=== PATIENT | male | born 1940 | race Caucasian/White ===

== ENCOUNTER 2021-05-04 15:55 | Emergency (ER) | payer OTHER, MEDICARE ==
[~2021-05-04] VITALS: Ht 182.9 cm; Wt 110.0 kg
[~2021-05-04 15:55] MED LIST: ACET-75 PO; ALB0.5UD IH; ALOG25TA2 PO; BISA-155 PO; CETI10TA15 PO; DONE10TA7 PO; EMPA25TA PO; EZET10TA6 PO; GABA-530 PO; INSU100I25 SQ; KETO5DRO3 RIGHTEYE; METF500T PO; METO-384 PO; MULT-381 PO; OFLO5DRO LEFTEYE; POLY17PO10 PO; PRED5DRO3 RIGHTEYE; TIOT4MIS3 INH
[2021-05-04] MEDS ORDERED: normal saline 1000ML IV soln IVB ONE (16:10)
[2021-05-04] MEDS ORDERED: morphine 4 MG/ML inj SYRINge IV PRN (16:10)
[2021-05-04] MEDS ORDERED: ondansetron/PF 4mg/2ml inj IV ONE (16:10)
[2021-05-04] MEDS ORDERED: CefTRIAXone 2gm/D5W 50ml BAG 50 ML IV ONE (18:05)
[2021-05-04] MEDS ORDERED: CEPH250T PO (19:05)
[2021-05-04] MEDS ORDERED: ONDA4TAB6 PO (19:05)
[2021-05-04] MEDS ORDERED: FLO0.4C PO (19:05)
[2021-05-04] MEDS ORDERED: HYDR-3965 PO (19:05)
[2021-05-04 19:30] VITALS: BP 166/67
== END 2021-05-04 19:34 | disposition home or self-care (01) ==
LOC: ER 15:57
DX: E11.9 Type 2 diabetes mellitus without complications (principal); J44.9 Chronic obstructive pulmonary disease, unspecified; Z87.442 Personal history of urinary calculi; Z79.4 Long term (current) use of insulin; Z79.899 Other long term (current) drug therapy; Z79.2 Long term (current) use of antibiotics
CPT/HCPCS: 74176; 96365; 96375; 99284; J0696; J2270; J2405; J7030

== ENCOUNTER 2022-03-23 02:32 | Emergency (ER) | payer OTHER, MEDICARE ==
[~2022-03-23] VITALS: Ht 182.9 cm; Wt 103.6 kg
[~2022-03-23 02:32] MED LIST changes: +DONE10TA19 PO; -DONE10TA7 PO; +ONDA4TAB6 PO
[2022-03-23 03:03] VITALS: BP 161/60
[2022-03-23 03:21] LABS: BASOPHILS # (AUTO) 0.1 X10'3 (0-0.2); BASOPHILS % (AUTO) 0.7 % (0-1); EOSINOPHILS # (AUTO) 0.1 X10'3 (0-0.9); EOSINOPHILS % (AUTO) 0.8 % (0-6); HEMATOCRIT 39.2 % (42.0-52.0); HEMOGLOBIN 13.1 g/dl (14.0-17.9); LYMPHOCYTES # (AUTO) 1.6 X10'3 (1.1-4.8); LYMPHOCYTES % (AUTO) 11.2 % (21-51); MEAN CORPUSCULAR HEMOGLOBIN 29.7 PG (27.0-31.0); MEAN CORPUSCULAR HGB CONC 33.5 g/dL (33.0-36.5); MEAN CORPUSCULAR VOLUME 88.4 FL (78-98); MONOCYTES # (AUTO) 1.5 X10'3 (0-0.9); MONOCYTES % (AUTO) 10.1 % (2-12); NEUTROPHILS # (AUTO) 11.2 X10'3 (1.8-7.7); NEUTROPHILS % (AUTO) 77.2 % (42-75); PLATELET COUNT 280 X10'3 (140-440); RED BLOOD COUNT 4.43 X10'6 (4.70-6.10); RED CELL DISTRIBUTION WIDTH 13.5 % (11.5-14.5); WHITE BLOOD COUNT 14.6 X10'3 (4.5-11.0)
[2022-03-23 03:31] LABS: ALANINE AMINOTRANSFERASE 21 U/L (12-78); ALBUMIN 3.6 G/DL (3.4-5.0); ALBUMIN/GLOBULIN RATIO 0.9 (1.1-1.5); ALKALINE PHOSPHATASE 98 IU/L (46-116); ANION GAP 11 (8-16); ASPARTATE AMINO TRANSFERASE 24 U/L (10-37); BILIRUBIN,TOTAL 0.7 MG/DL (0.1-1.0); BLOOD UREA NITROGEN 28 MG/DL (7-18); BUN/CREATININE RATIO 20.1 (5.4-32.0); CALCIUM 9.3 MG/DL (8.5-10.1); CHLORIDE 104 MMOL/L (99-107); CREATININE 1.39 MG/DL (0.60-1.10); GLUCOSE 285 MG/DL (70-104); MAGNESIUM 1.9 MG/DL (1.5-2.4); POTASSIUM 4.1 MMOL/L (3.5-5.1); SODIUM 141 MMOL/L (135-145); TOTAL CARBON DIOXIDE 26.5 MMOL/L (24-32); TOTAL PROTEIN 7.4 G/DL (6.4-8.2); eGFR 49 ML/MIN
[2022-03-23] MEDS ORDERED: ringers solution, lactated 500ml IV solution IV ONE (03:45)
--- NOTE | 2022-03-23 06:54 | NUR ---
D/C'd to home via taxi.
== END 2022-03-23 06:55 | disposition home or self-care (01) ==
LOC: ER 02:33
DX: R53.1 Weakness (principal); I48.91 Unspecified atrial fibrillation; E78.00 Pure hypercholesterolemia, unspecified; E11.42 Type 2 diabetes mellitus with diabetic polyneuropathy; I10 Essential (primary) hypertension; J44.9 Chronic obstructive pulmonary disease, unspecified; Z87.442 Personal history of urinary calculi; Z88.8 Allergy status to other drugs, medicaments and biological substances; Z79.4 Long term (current) use of insulin; Z79.899 Other long term (current) drug therapy
CPT/HCPCS: 36415; 80053; 83605; 83735; 84145; 85025; 87040; 87077; 87502; 87503; 93005; 99284; J7120

== ENCOUNTER 2022-03-24 14:28 | Inpatient (IN) | payer OTHER, MEDICARE ==
[~2022-03-24] VITALS: Ht 182.9 cm; Wt 103.6 kg
[2022-03-24 15:19] LABS: BASOPHILS # (AUTO) 0.1 X10'3 (0-0.2); BASOPHILS % (AUTO) 0.7 % (0-1); EOSINOPHILS # (AUTO) 0.2 X10'3 (0-0.9); HEMATOCRIT 44.2 % (42.0-52.0); HEMOGLOBIN 14.8 g/dl (14.0-17.9); LYMPHOCYTES % (AUTO) 13.2 % (21-51); MEAN CORPUSCULAR HEMOGLOBIN 29.7 PG (27.0-31.0); MEAN CORPUSCULAR HGB CONC 33.5 g/dL (33.0-36.5); MEAN CORPUSCULAR VOLUME 88.7 FL (78-98); MEAN PLATELET VOLUME 7.8 FL (7.4-10.4); MONOCYTES # (AUTO) 1.4 X10'3 (0-0.9); MONOCYTES % (AUTO) 9.4 % (2-12); NEUTROPHILS # (AUTO) 11.7 X10'3 (1.8-7.7); NEUTROPHILS % (AUTO) 75.7 % (42-75); PLATELET COUNT 283 X10'3 (140-440); RED BLOOD COUNT 4.98 X10'6 (4.70-6.10); RED CELL DISTRIBUTION WIDTH 13.8 % (11.5-14.5); WHITE BLOOD COUNT 15.5 X10'3 (4.5-11.0)
[2022-03-24 15:28] LABS: D-DIMER 2.57 MG/L FEU (0-0.50)
[2022-03-24 15:32] LABS: ALANINE AMINOTRANSFERASE 20 U/L (12-78); ALBUMIN 3.8 G/DL (3.4-5.0); ALBUMIN/GLOBULIN RATIO 0.9 (1.1-1.5); ALKALINE PHOSPHATASE 108 IU/L (46-116); ANION GAP 12 (8-16); ASPARTATE AMINO TRANSFERASE 24 U/L (10-37); BILIRUBIN,TOTAL 0.8 MG/DL (0.1-1.0); BLOOD UREA NITROGEN 22 MG/DL (7-18); BUN/CREATININE RATIO 18.8 (5.4-32.0); CALCIUM 9.6 MG/DL (8.5-10.1); CHLORIDE 103 MMOL/L (99-107); CREATININE 1.17 MG/DL (0.60-1.10); GLUCOSE 198 MG/DL (70-104); POTASSIUM 3.6 MMOL/L (3.5-5.1); SODIUM 141 MMOL/L (135-145); TOTAL CARBON DIOXIDE 26.3 MMOL/L (24-32); TOTAL PROTEIN 7.9 G/DL (6.4-8.2); eGFR 60 ML/MIN
[2022-03-24] MEDS ORDERED: normal saline 1000ML IV soln IVB ONE (15:50)
[2022-03-24] MEDS ORDERED: iohexol 350MG/ML 100ml bottle IV ONE (15:54)
[2022-03-24] MEDS ORDERED: CefTRIAXone 2gm/D5W 50ml BAG 50 ML IV ONE (16:45)
[2022-03-24 17:54] LABS: CLARITY,URINE CLEAR (Clear); COLOR,URINE YELLOW (Yellow); GLUCOSE, URINE 500 mg/dl (Neg); KETONES,URINE 15 mg/dl (Neg); LEUKOCYTE ESTERASE ,URINE NEGATIVE (Neg); NITRITES, URINE NEGATIVE (Neg); OCCULT BLOOD,URINE LARGE (Neg); PH,URINE 5.5 (4.8-8.0); PROTEIN,URINE TRACE mg/dl (Neg); UROBILINOGEN,URINE 0.2 E.U/dL (0.2-1.0)
[2022-03-24 17:57] LABS: UA COLLECTION TYPE NON-SPECIFIED
[2022-03-24 17:59] LABS: RBC,URINE 20-50 /HPF (0-2)
[2022-03-24 18:00] LABS: BACTERIA,URINE FEW /HPF (Neg); HYALINE CASTS 0-3 /LPF (NEGATIVE); MUCUS STRANDS FEW /LPF (Neg); SQUAMOUS EPITHELIAL CELL,UR FEW /LPF (FEW)
--- NOTE | 2022-03-24 18:30 | NUR ---
ASSUMED CARE OF PATIENT AFTER RECIEVING REPORT. PT. RESTING QUIETLY ON GURNEY WITHOUT APPARENT DISTRESS. DENIES ANY COMPLAINTS OF PAIN AT THIS TIME.
[2022-03-24] MEDS ORDERED: glucagon, human recombinant 1mg kit SUBCUT PRN (20:35)
[2022-03-24] MEDS ORDERED: acetaminophen 325mg tablet PO PRN ×2 (20:35)
[2022-03-24] MEDS ORDERED: MESSAGE TO PHARMACY PO ONE (20:35)
[2022-03-24] MEDS ORDERED: morphine 2 MG/ML inj. syringe IV PRN ×2 (20:35)
[2022-03-24] MEDS ORDERED: HYDROcodone/acetaminophen 10/325mg tab PO PRN (20:35)
[2022-03-24] MEDS ORDERED: HYDROcodone/acetaminophen 5mg/325mg tablet PO PRN (20:35)
[2022-03-24] MEDS ORDERED: dextrose 50%-water 50ml dispensing syringe IV PRN ×2 (20:35)
[2022-03-24] MEDS ORDERED: magnesium Cl slow-release 64mg tablet PO PRN (20:35)
[2022-03-24] MEDS ORDERED: DEXTROSE 15 GM of carb/4 tabs (each vial/BOTTLE has 4 tablets) PO PRN ×2 (20:35)
[2022-03-24] MEDS ORDERED: POTASSIUM BICARB 20meq eff tab 20 MEQ TABLET.EFF PO PRN (20:35)
[2022-03-24] MEDS ORDERED: ondansetron/PF 4mg/2ml inj IV PRN (20:35)
[2022-03-24] MEDS ORDERED: magnesium 2GM in 50ml NS 50 ML IV PRN (20:35)
[2022-03-24] MEDS ORDERED: potassium CL 10mEq/100ml bag 100 ML IV PRN (20:35)
[2022-03-24] MEDS ORDERED: magnesium 4gm in 100ml NS 100 ML IV PRN (20:35)
[2022-03-24] MEDS: tamsulosin 0.4mg capsule PO SCH ×2 (21:00→21:31)
[2022-03-24] MEDS: insulin glargine (Lantus) pen - multi-dose SQ SCH (21:00)
[2022-03-24] MEDS: normal saline 1000ml 1,000 ML IV SCH (21:27)
--- NOTE | 2022-03-24 23:46 | NUR ---
PLACED ON HOSPITAL BED FOR COMFORT. ASSISTED TO CHAIR FOR TRANSFER TO BED, SLIGHT WEAKNESS AND UNSTEADINESS NOTED. RESTING QUIETLY IN BED WITH CALL LIGHT WITHIN REACH.
[2022-03-25] VITALS (17 sets, daily range): BP systolic 98–180; BP diastolic 58–92
--- NOTE | 2022-03-25 01:41 | NUR ---
FOUND PATIENT OOB WITH ALL MONITORS OFF, PULLED OUT BOTH IV'S (RT ANTECUBITAL & LT FOREARM). CONFUSED TO PLACE, TIME AND EVENT. ORIENTED PRN. ASSISTED BACK TO BED AND IV STARTED LT. FOREARM. CALL LIGHT WITHIN REACH AT ALL TIMES.
[2022-03-25] MEDS: normal saline 1000ml 1,000 ML IV SCH ×2 (06:35→14:32)
--- NOTE | 2022-03-25 07:45 | NUR ---
Pt is awake and alert. Denies pain. Uses urinal to void.
[2022-03-25] MEDS: K and/or MAG REPLACEMENT MC SCH ×2 (08:00→19:44)
[2022-03-25] MEDS: heparin, porcine 5000 units/ml vial SQ SCH ×2 (08:03→20:38)
[2022-03-25] MEDS: CefTRIAXone 2gm/D5W 50ml BAG 50 ML IV SCH (08:03)
[2022-03-25 08:29] LABS: BASOPHILS # (AUTO) 0.1 X10'3 (0-0.2); BASOPHILS % (AUTO) 0.6 % (0-1); EOSINOPHILS # (AUTO) 0.1 X10'3 (0-0.9); HEMATOCRIT 41.5 % (42.0-52.0); HEMOGLOBIN 13.7 g/dl (14.0-17.9); LYMPHOCYTES # (AUTO) 1.1 X10'3 (1.1-4.8); MEAN CORPUSCULAR HEMOGLOBIN 29.9 PG (27.0-31.0); MEAN CORPUSCULAR HGB CONC 33.1 g/dL (33.0-36.5); MEAN CORPUSCULAR VOLUME 90.3 FL (78-98); MEAN PLATELET VOLUME 8.5 FL (7.4-10.4); MONOCYTES # (AUTO) 0.9 X10'3 (0-0.9); MONOCYTES % (AUTO) 8.4 % (2-12); NEUTROPHILS # (AUTO) 8.6 X10'3 (1.8-7.7); PLATELET COUNT 242 X10'3 (140-440); RED CELL DISTRIBUTION WIDTH 13.6 % (11.5-14.5); WHITE BLOOD COUNT 10.8 X10'3 (4.5-11.0)
[2022-03-25 08:52] LABS: ALANINE AMINOTRANSFERASE 19 U/L (12-78); ALBUMIN 3.4 G/DL (3.4-5.0); ALBUMIN/GLOBULIN RATIO 0.9 (1.1-1.5); ALKALINE PHOSPHATASE 102 IU/L (46-116); ANION GAP 16 (8-16); ASPARTATE AMINO TRANSFERASE 21 U/L (10-37); BILIRUBIN,TOTAL 0.7 MG/DL (0.1-1.0); BLOOD UREA NITROGEN 20 MG/DL (7-18); BUN/CREATININE RATIO 16.9 (5.4-32.0); CALCIUM 8.9 MG/DL (8.5-10.1); CHLORIDE 104 MMOL/L (99-107); CREATININE 1.18 MG/DL (0.60-1.10); GLUCOSE 214 MG/DL (70-104); POTASSIUM 3.7 MMOL/L (3.5-5.1); SODIUM 141 MMOL/L (135-145); TOTAL CARBON DIOXIDE 21.4 MMOL/L (24-32); TOTAL PROTEIN 7.3 G/DL (6.4-8.2); eGFR 60 ML/MIN
[2022-03-25] MEDS: insulin Lispro (HumaLOG) vial - multi-dose SQ SCH ×2 (10:05→21:55)
[2022-03-25] MEDS ORDERED: iohexol 350MG/ML 100ml bottle IV ONE (12:56)
[2022-03-25] MEDS ORDERED: sevoflurane 250ml liquid IH ONE (12:57)
[2022-03-25] MEDS ORDERED: ondansetron/PF 4mg/2ml inj IV PRN (13:00)
[2022-03-25] MEDS ORDERED: ringers solution, lacted 1,000 ML IV SCH (13:00)
[2022-03-25] MEDS ORDERED: morphine 2 MG/ML inj. syringe IV PRN (13:00)
[2022-03-25] MEDS ORDERED: meperidine/PF 25mg/ml syringe IV PRN ×3 (13:00)
[2022-03-25] MEDS ORDERED: morphine 4 MG/ML inj SYRINge IV PRN (13:00)
[2022-03-25] MEDS ORDERED: proCHLORperazine 10 MG/2 ml inj IV PRN (13:00)
[2022-03-25] MEDS ORDERED: fentaNYL/PF 50MCG/1 ML 2ML syringe ONE (13:14)
[2022-03-25] MEDS ORDERED: midazolam 1 mg/ML 2ml injection ONE (13:14)
[2022-03-25] MEDS ORDERED: propofol inj 20 ML IV ONE (13:15)
[2022-03-25] MEDS ORDERED: LIDOcaine 2% (20mg/ml) 5ml vial ONE (13:15)
--- NOTE | 2022-03-25 13:47 | NUR ---
Received from OR viaBED, accompanied by Anesthesiologist JAYANT and OR NURSE report given by Anesthesiolgist. PT AWAKE C/O PAIN AND DISCOMFORT. ON MASK AT 10 LPM. A/O X4; HX OF SLIGHT DEMENTIA. SCD'S NOT IN PLACE. Addendum: 03/25/22 at 1403 by Annie Huertas RN Amended: Links added.
--- NOTE | 2022-03-25 14:44 | NUR ---
PT C/O PAIN TO ABDOMINAL AREA; WAS A 9 AND RECEIVED SOME RELIEF WITH DEMERAL. STATES PAIN IS NOW BETWEEN 8-9; GAVE MORPHINE PER EMAR. WILL CONTINUE TO MONITOR. Addendum: 03/25/22 at 1446 by Annie Huertas RN Amended: Links added.
--- NOTE | 2022-03-25 14:57 | NUR ---
Report called to receiving nurse. Transferred via bed Belongings of one bag and glass case was transferred with pt. RUG MEASURER HUNG FLOOR FLUIDS OF NS AT 100ML/HR. VSS. PT STATES PAIN RELIEF FROM PAIN MED. . Special Issues communicated to receiving nurse. Addendum: 03/25/22 at 1521 by Annie Huertas RN Amended: Links added.
[2022-03-25] MEDS ORDERED: ALOG12.52 PO (16:47)
[2022-03-25] MEDS ORDERED: ATOR-2 PO (16:47)
[2022-03-25] MEDS ORDERED: GABA300C PO (16:49)
[2022-03-25] MEDS ORDERED: DEXT1TAB46 PO (16:51)
[2022-03-25] MEDS ORDERED: METO-395 PO (16:53)
[2022-03-25] MEDS ORDERED: gabapentin 300mg capsule PO PRN (19:00)
--- NOTE | 2022-03-25 20:30 | NUR ---
patient trying to get up to "take a shower". tried to explain to him that he is too unsteady at this time to have a shower. Offered a bed bath. patient demanding that all staff to leave his room, that he "releases us from liability". Explained again that I cannot leave him for safety reasons, as he continues to pull at lines and try to get up. Gait belt placed and patient tried to urinate in BSC. (patient had already been inc in the bed). Bedding changed and staff continually trying to reorient patient to place. He states that he "paid the rent here, so he wants to kick us out." Threats to call police, etc. called. Seroquel 25mg ordered, and if it is ineffective, to give 1 time dose of 0.5 Ativan.
[2022-03-25] MEDS: tamsulosin 0.4mg capsule PO SCH (20:35)
[2022-03-25] MEDS: metoprolol succinate 25mg (24-HOUR) SR. Tablet PO SCH (20:38)
[2022-03-25] MEDS: atorvastatin 20mg tablet PO SCH (20:39)
[2022-03-25] MEDS ORDERED: quetiapine 100mg tablet PO PRN (21:15)
[2022-03-25] MEDS ORDERED: LORazepam 2 mg/ml vial IV ONE (21:15)
[2022-03-25] MEDS ORDERED: QUEtiapine 25mg tablet PO PRN (21:41)
[2022-03-25] MEDS: insulin glargine (Lantus) pen - multi-dose SQ SCH (21:51)
--- NOTE | 2022-03-25 22:00 | NUR ---
student success advisor and myself signed for insulin administration - also had MERLY Arellano check with us for verification.
[2022-03-26 02:00] VITALS: BP 114/50
--- NOTE | 2022-03-26 02:00 | NUR ---
Patient awoke and pulled off leads. Refuses to have them replaced. technical instructor notified.
[2022-03-26] MEDS: normal saline 1000ml 1,000 ML IV SCH ×3 (04:24→23:02)
--- NOTE | 2022-03-26 05:23 | NUR ---
Student documentation: I have reviewed and agree with all interventions, assessments performed and documented by JEMIMA dunlap.
--- NOTE | 2022-03-26 06:30 | NUR ---
Patient in room [facility]. I have received report from DONNA Pettit and had the opportunity to ask questions and assume patient care.
[2022-03-26 06:38] LABS: BASOPHILS % (AUTO) 0.3 % (0-1); EOSINOPHILS % (AUTO) 0 % (0-6); HEMATOCRIT 40.2 % (42.0-52.0); HEMOGLOBIN 13.6 g/dl (14.0-17.9); LYMPHOCYTES # (AUTO) 0.8 X10'3 (1.1-4.8); LYMPHOCYTES % (AUTO) 6.6 % (21-51); MEAN CORPUSCULAR HEMOGLOBIN 29.7 PG (27.0-31.0); MEAN CORPUSCULAR HGB CONC 33.9 g/dL (33.0-36.5); MEAN CORPUSCULAR VOLUME 87.7 FL (78-98); MEAN PLATELET VOLUME 8.3 FL (7.4-10.4); MONOCYTES # (AUTO) 0.7 X10'3 (0-0.9); MONOCYTES % (AUTO) 5.8 % (2-12); NEUTROPHILS # (AUTO) 11.1 X10'3 (1.8-7.7); NEUTROPHILS % (AUTO) 87.3 % (42-75); PLATELET COUNT 263 X10'3 (140-440); RED BLOOD COUNT 4.58 X10'6 (4.70-6.10); RED CELL DISTRIBUTION WIDTH 13.4 % (11.5-14.5); WHITE BLOOD COUNT 12.7 X10'3 (4.5-11.0)
--- NOTE | 2022-03-26 06:45 | NUR ---
Problems reprioritized. Patient report given, questions answered & plan of care reviewed with DONNA Anders.
[2022-03-26 07:02] LABS: ALANINE AMINOTRANSFERASE 19 U/L (12-78); ALBUMIN 3.3 G/DL (3.4-5.0); ALBUMIN/GLOBULIN RATIO 0.8 (1.1-1.5); ALKALINE PHOSPHATASE 96 IU/L (46-116); ANION GAP 13 (8-16); ASPARTATE AMINO TRANSFERASE 20 U/L (10-37); BILIRUBIN,TOTAL 0.6 MG/DL (0.1-1.0); BLOOD UREA NITROGEN 21 MG/DL (7-18); BUN/CREATININE RATIO 16.7 (5.4-32.0); CALCIUM 9.4 MG/DL (8.5-10.1); CHLORIDE 102 MMOL/L (99-107); CREATININE 1.26 MG/DL (0.60-1.10); GLUCOSE 251 MG/DL (70-104); POTASSIUM 3.8 MMOL/L (3.5-5.1); SODIUM 139 MMOL/L (135-145); TOTAL CARBON DIOXIDE 23.7 MMOL/L (24-32); TOTAL PROTEIN 7.2 G/DL (6.4-8.2); eGFR 55 ML/MIN
--- NOTE | 2022-03-26 07:04 | NUR ---
Patient in room [facility] 358. I have received report from Hodan THOMPSON and had the opportunity to ask questions and assume patient care.
[2022-03-26] MEDS: K and/or MAG REPLACEMENT MC SCH ×2 (08:00→19:26)
[2022-03-26] MEDS: MULTIVIT-MIN/FERROUS GLUCONATE 9 MG/15 ML LIQUID PO SCH (09:07)
[2022-03-26] MEDS: heparin, porcine 5000 units/ml vial SQ SCH ×2 (09:14→20:52)
[2022-03-26] MEDS: CefTRIAXone 2gm/D5W 50ml BAG 50 ML IV SCH (09:16)
[2022-03-26] MEDS: insulin Lispro (HumaLOG) vial - multi-dose SQ SCH ×3 (09:59→19:02)
[2022-03-26 10:00] VITALS: BP 121/75
--- NOTE | 2022-03-26 17:11 | NUR ---
DM Consult: Pt hx T2DM A1C 9.5% admit DX UTI, HTN, afib, and Right obstructive uropathy with a stone seen at the UPJ junction with secondary hydronephrosis-status post cystoscopy and stent placement 03/25 per EMR. Pt hx dementia per EMR; ERNST d/w RN who reports pt periods of forgetfulness as well; DM ed deferred at this time. Noted pt on clear liquids diet for unknown reason; RN reports no issues chewing/swallowing. RD recommended advancement to carb controlled diet if physician agreeable. Addendum: 03/26/22 at [address] Amended: Links added.
[2022-03-26 18:00] VITALS: BP 128/65
--- NOTE | 2022-03-26 18:24 | NUR ---
Problems reprioritized. Patient report given, questions answered & plan of care reviewed with Shira THOMPSON.
--- NOTE | 2022-03-26 18:59 | NUR ---
PAGER ID: [phone] MESSAGE: ACOSTA LEAHY#[phone] PT WOULD LIKE REAL FOOD, CAN WE CHANGE IT TO CARB CONTROL? ALSO HE IS GETTING ANXIOUS, CAN WE GET ATIVAN AND SEROQUEL? PRN THANK YOU. UDAY THOMPSON, CONCHITA B [phone]
--- NOTE | 2022-03-26 20:16 | NUR ---
PAGER ID: [phone] MESSAGE: this is Hodan at [phone] - can we DC tele monitor for Doris Jc? He refuses to keep it on. called back. Order to DC tele and to upgrade diet to CC.
[2022-03-26] MEDS: temazepam 15mg capsule PO PRN (20:52)
[2022-03-26] MEDS: atorvastatin 20mg tablet PO SCH (20:53)
[2022-03-26] MEDS: tamsulosin 0.4mg capsule PO SCH (20:53)
[2022-03-26] MEDS: metoprolol succinate 25mg (24-HOUR) SR. Tablet PO SCH (20:53)
[2022-03-26] MEDS: insulin glargine (Lantus) pen - multi-dose SQ SCH (21:02)
[2022-03-26 22:00] VITALS: BP 122/50
--- NOTE | 2022-03-27 04:42 | NUR ---
Student documentation: I have reviewed and agree with all interventions, assessments performed and documented by JEMIMA Brandt.
[2022-03-27 06:00] VITALS: BP 121/77
--- NOTE | 2022-03-27 06:13 | NUR ---
Problems reprioritized. Patient report given, questions answered & plan of care reviewed with DONNA Gaytan and Valeria, student RN.
[2022-03-27 06:24] LABS: BASOPHILS # (AUTO) 0.1 X10'3 (0-0.2); BASOPHILS % (AUTO) 0.7 % (0-1); EOSINOPHILS # (AUTO) 0.3 X10'3 (0-0.9); EOSINOPHILS % (AUTO) 2.9 % (0-6); HEMOGLOBIN 12.6 g/dl (14.0-17.9); LYMPHOCYTES # (AUTO) 2.1 X10'3 (1.1-4.8); LYMPHOCYTES % (AUTO) 21.6 % (21-51); MEAN CORPUSCULAR HEMOGLOBIN 29.6 PG (27.0-31.0); MEAN CORPUSCULAR HGB CONC 33.2 g/dL (33.0-36.5); MEAN CORPUSCULAR VOLUME 89.2 FL (78-98); MEAN PLATELET VOLUME 9.2 FL (7.4-10.4); MONOCYTES # (AUTO) 1.1 X10'3 (0-0.9); MONOCYTES % (AUTO) 10.9 % (2-12); NEUTROPHILS # (AUTO) 6.3 X10'3 (1.8-7.7); NEUTROPHILS % (AUTO) 63.9 % (42-75); PLATELET COUNT 252 X10'3 (140-440); RED BLOOD COUNT 4.26 X10'6 (4.70-6.10); RED CELL DISTRIBUTION WIDTH 13.7 % (11.5-14.5); WHITE BLOOD COUNT 9.8 X10'3 (4.5-11.0)
[2022-03-27 06:53] LABS: ALANINE AMINOTRANSFERASE 15 U/L (12-78); ALBUMIN 2.9 G/DL (3.4-5.0); ALBUMIN/GLOBULIN RATIO 0.9 (1.1-1.5); ALKALINE PHOSPHATASE 82 IU/L (46-116); ANION GAP 9 (8-16); ASPARTATE AMINO TRANSFERASE 19 U/L (10-37); BILIRUBIN,TOTAL 0.5 MG/DL (0.1-1.0); BLOOD UREA NITROGEN 20 MG/DL (7-18); BUN/CREATININE RATIO 17.1 (5.4-32.0); CALCIUM 8.8 MG/DL (8.5-10.1); CHLORIDE 109 MMOL/L (99-107); CREATININE 1.17 MG/DL (0.60-1.10); GLUCOSE 115 MG/DL (70-104); POTASSIUM 3.1 MMOL/L (3.5-5.1); SODIUM 144 MMOL/L (135-145); TOTAL CARBON DIOXIDE 26.3 MMOL/L (24-32); TOTAL PROTEIN 6.1 G/DL (6.4-8.2); eGFR 60 ML/MIN
[2022-03-27] MEDS: K and/or MAG REPLACEMENT MC SCH ×2 (08:00→19:28)
[2022-03-27] MEDS: CefTRIAXone 2gm/D5W 50ml BAG 50 ML IV SCH (09:06)
[2022-03-27] MEDS: MULTIVIT-MIN/FERROUS GLUCONATE 9 MG/15 ML LIQUID PO SCH (09:06)
[2022-03-27] MEDS: heparin, porcine 5000 units/ml vial SQ SCH ×2 (09:06→20:59)
[2022-03-27] MEDS: normal saline 1000ml 1,000 ML IV SCH ×2 (09:07→19:27)
[2022-03-27] MEDS: POTASSIUM BICARB 20meq eff tab 20 MEQ TABLET.EFF PO PRN ×3 (09:19→17:26)
[2022-03-27] MEDS: insulin Lispro (HumaLOG) vial - multi-dose SQ SCH ×3 (09:29→19:25)
[2022-03-27 10:00] VITALS: BP 127/57
--- NOTE | 2022-03-27 10:28 | NUR ---
Patient asked who was watching his cat. I called Rach his daughter who is on the SBAR and was unaware patient was in hospital. She has been updated and is going to send someone over to check on his cat.
[2022-03-27 18:00] VITALS: BP 126/64
--- NOTE | 2022-03-27 19:03 | NUR ---
Report given to Hodan THOMPSON. Pt is resting with no other concerns at this time. Shawnee Hernadez RN looked over care and charting.
[2022-03-27] MEDS: metoprolol succinate 25mg (24-HOUR) SR. Tablet PO SCH (20:59)
[2022-03-27] MEDS: atorvastatin 20mg tablet PO SCH (20:59)
[2022-03-27] MEDS: tamsulosin 0.4mg capsule PO SCH (20:59)
[2022-03-27] MEDS: temazepam 15mg capsule PO PRN (21:00)
[2022-03-27] MEDS: insulin glargine (Lantus) pen - multi-dose SQ SCH (21:06)
--- NOTE | 2022-03-27 21:15 | NUR ---
Entered patient's room at approximately 2100 to find PIV pulled out and hanging over the IV pole. Canula was intact to PIV and patient had no signs of bleeding at PIV site.
[2022-03-27 22:00] VITALS: BP 139/84
[2022-03-28 06:00] VITALS: BP 115/61
[2022-03-28 06:01] LABS: BASOPHILS # (AUTO) 0.1 X10'3 (0-0.2); BASOPHILS % (AUTO) 1.3 % (0-1); EOSINOPHILS # (AUTO) 0.3 X10'3 (0-0.9); EOSINOPHILS % (AUTO) 2.9 % (0-6); HEMATOCRIT 37.7 % (42.0-52.0); HEMOGLOBIN 12.4 g/dl (14.0-17.9); LYMPHOCYTES % (AUTO) 19.9 % (21-51); MEAN CORPUSCULAR HEMOGLOBIN 29.4 PG (27.0-31.0); MEAN CORPUSCULAR HGB CONC 32.8 g/dL (33.0-36.5); MEAN CORPUSCULAR VOLUME 89.7 FL (78-98); MEAN PLATELET VOLUME 9.2 FL (7.4-10.4); MONOCYTES # (AUTO) 0.9 X10'3 (0-0.9); MONOCYTES % (AUTO) 8.5 % (2-12); NEUTROPHILS # (AUTO) 6.8 X10'3 (1.8-7.7); NEUTROPHILS % (AUTO) 67.4 % (42-75); PLATELET COUNT 238 X10'3 (140-440); RED BLOOD COUNT 4.21 X10'6 (4.70-6.10); RED CELL DISTRIBUTION WIDTH 13.7 % (11.5-14.5); WHITE BLOOD COUNT 10.1 X10'3 (4.5-11.0)
[2022-03-28 06:16] LABS: ALANINE AMINOTRANSFERASE 15 U/L (12-78); ALBUMIN 2.9 G/DL (3.4-5.0); ALBUMIN/GLOBULIN RATIO 0.9 (1.1-1.5); ALKALINE PHOSPHATASE 86 IU/L (46-116); ANION GAP 9 (8-16); ASPARTATE AMINO TRANSFERASE 19 U/L (10-37); BILIRUBIN,TOTAL 0.5 MG/DL (0.1-1.0); BLOOD UREA NITROGEN 18 MG/DL (7-18); BUN/CREATININE RATIO 14.4 (5.4-32.0); CALCIUM 8.7 MG/DL (8.5-10.1); CHLORIDE 108 MMOL/L (99-107); CREATININE 1.25 MG/DL (0.60-1.10); GLUCOSE 173 MG/DL (70-104); POTASSIUM 3.2 MMOL/L (3.5-5.1); SODIUM 143 MMOL/L (135-145); TOTAL CARBON DIOXIDE 25.7 MMOL/L (24-32); TOTAL PROTEIN 6.3 G/DL (6.4-8.2); eGFR 56 ML/MIN
[2022-03-28] MEDS: K and/or MAG REPLACEMENT MC SCH ×2 (08:00→19:16)
[2022-03-28] MEDS: normal saline 1000ml 1,000 ML IV SCH ×2 (08:00→16:20)
[2022-03-28] MEDS: CefTRIAXone 2gm/D5W 50ml BAG 50 ML IV SCH (08:12)
[2022-03-28] MEDS: MULTIVIT-MIN/FERROUS GLUCONATE 9 MG/15 ML LIQUID PO SCH (08:19)
[2022-03-28] MEDS: heparin, porcine 5000 units/ml vial SQ SCH ×2 (08:20→20:37)
[2022-03-28] MEDS: insulin Lispro (HumaLOG) vial - multi-dose SQ SCH ×3 (08:27→19:11)
[2022-03-28 11:00] VITALS: BP 118/59
--- NOTE | 2022-03-28 11:22 | NUR ---
Initial: Pt admitted w/ R obstructive uropathy with a stone seen at the UPJ junction with secondary hydronephrosis-status post cystoscopy and stent placement 03/25 per EMR. Currently on Carb control diet w/ avg intake 50% of meals partially meeting needs. Pt could benefit from Glucerna TID to assist w/ meeting needs. Pt documented as A&O x 4 and confused. LBM 03/27. Will continue to monitor. Recs; 1. Continue Carb control diet as tolerated; assist w/ meals as needed 2. Glucerna TID; pending MD verification 3. Bowel care per rx 4. Scaled wts Addendum: 03/28/22 at [address]án [address] RD Amended: Links added.
--- NOTE | 2022-03-28 11:52 | NUR ---
PAGER ID: [phone] MESSAGE: [id number] Doris Daughter at bedside, states patient is NOT at baseline, not able to go home alone. SARAI [id number]
--- NOTE | 2022-03-28 11:53 | NUR ---
as clinical instructor i reviewed student nurse charting
--- NOTE | 2022-03-28 15:41 | NUR ---
PAGER ID: [phone] MESSAGE: [id number] Doris Rebolledo+ 3.2 would you like me to restart protocol? SARAI [id number]
[2022-03-28] MEDS ORDERED: magnesium Cl slow-release 64mg tablet PO PRN (15:45)
[2022-03-28] MEDS ORDERED: potassium Cl 40MEQ/1/2NS 520ml 520 ML IV PRN (15:45)
[2022-03-28] MEDS ORDERED: potassium Cl 20 mEq SR tablet PO PRN (15:45)
[2022-03-28] MEDS ORDERED: magnesium 4gm in 100ml NS 100 ML IV PRN (15:45)
[2022-03-28] MEDS: potassium Cl 20 mEq SR tablet PO PRN (19:09)
[2022-03-28] MEDS ORDERED: K and/or MAG REPLACEMENT MC SCH (20:00)
[2022-03-28] MEDS: tamsulosin 0.4mg capsule PO SCH (20:34)
[2022-03-28] MEDS: metoprolol succinate 25mg (24-HOUR) SR. Tablet PO SCH (20:34)
[2022-03-28] MEDS: atorvastatin 20mg tablet PO SCH (20:34)
[2022-03-28] MEDS: temazepam 15mg capsule PO PRN (20:34)
[2022-03-28] MEDS: insulin glargine (Lantus) pen - multi-dose SQ SCH (20:38)
[2022-03-29] MEDS: normal saline 1000ml 1,000 ML IV SCH ×3 (01:37→20:35)
[2022-03-29] MEDS: potassium Cl 20 mEq SR tablet PO PRN ×4 (01:37→20:57)
[2022-03-29 06:00] VITALS: BP 155/73
[2022-03-29 06:44] LABS: BASOPHILS # (AUTO) 0.1 X10'3 (0-0.2); BASOPHILS % (AUTO) 1.1 % (0-1); EOSINOPHILS # (AUTO) 0.3 X10'3 (0-0.9); EOSINOPHILS % (AUTO) 3.5 % (0-6); HEMATOCRIT 38.4 % (42.0-52.0); HEMOGLOBIN 12.7 g/dl (14.0-17.9); MEAN CORPUSCULAR HEMOGLOBIN 29.7 PG (27.0-31.0); MEAN CORPUSCULAR HGB CONC 33.1 g/dL (33.0-36.5); MEAN CORPUSCULAR VOLUME 89.7 FL (78-98); MEAN PLATELET VOLUME 8.7 FL (7.4-10.4); MONOCYTES # (AUTO) 0.8 X10'3 (0-0.9); MONOCYTES % (AUTO) 8.8 % (2-12); NEUTROPHILS # (AUTO) 5.7 X10'3 (1.8-7.7); NEUTROPHILS % (AUTO) 63.6 % (42-75); PLATELET COUNT 221 X10'3 (140-440); RED BLOOD COUNT 4.28 X10'6 (4.70-6.10); WHITE BLOOD COUNT 8.9 X10'3 (4.5-11.0)
[2022-03-29 06:57] LABS: ALANINE AMINOTRANSFERASE 20 U/L (12-78); ALBUMIN 3.1 G/DL (3.4-5.0); ALBUMIN/GLOBULIN RATIO 0.9 (1.1-1.5); ALKALINE PHOSPHATASE 101 IU/L (46-116); ANION GAP 10 (8-16); ASPARTATE AMINO TRANSFERASE 21 U/L (10-37); BILIRUBIN,TOTAL 0.5 MG/DL (0.1-1.0); BLOOD UREA NITROGEN 16 MG/DL (7-18); BUN/CREATININE RATIO 12.8 (5.4-32.0); CALCIUM 8.9 MG/DL (8.5-10.1); CHLORIDE 108 MMOL/L (99-107); CREATININE 1.25 MG/DL (0.60-1.10); GLUCOSE 172 MG/DL (70-104); MAGNESIUM 1.5 MG/DL (1.5-2.4); POTASSIUM 3.3 MMOL/L (3.5-5.1); SODIUM 142 MMOL/L (135-145); TOTAL CARBON DIOXIDE 24.5 MMOL/L (24-32); TOTAL PROTEIN 6.7 G/DL (6.4-8.2); eGFR 56 ML/MIN
[2022-03-29] MEDS: K and/or MAG REPLACEMENT MC SCH ×2 (08:00→20:00)
[2022-03-29] MEDS: insulin Lispro (HumaLOG) vial - multi-dose SQ SCH ×3 (09:16→19:07)
[2022-03-29] MEDS: heparin, porcine 5000 units/ml vial SQ SCH ×2 (09:18→20:57)
[2022-03-29] MEDS: MULTIVIT-MIN/FERROUS GLUCONATE 9 MG/15 ML LIQUID PO SCH (09:18)
[2022-03-29] MEDS: CefTRIAXone 2gm/D5W 50ml BAG 50 ML IV SCH (09:18)
[2022-03-29] MEDS ORDERED: tamsulosin capsule PO (09:55)
[2022-03-29] MEDS ORDERED: AMOX-419 PO (10:01)
[2022-03-29 11:00] VITALS: BP 125/60
--- NOTE | 2022-03-29 12:36 | NUR ---
PAGER ID: [phone] MESSAGE: [id number] Doris is unsteady, almost fell coming out of the bathroom. SARAI [phone]
--- NOTE | 2022-03-29 13:28 | NUR ---
assisting RN with pt care, Rach Brunner, daughter, , would like to talk with director case management
--- NOTE | 2022-03-29 16:26 | NUR ---
Spoke with daughter on the phone. She is uncomfortable with the patient going home as he will be alone and is still weak. She does not live in [place] and works. Home health and home PT ordered.
--- NOTE | 2022-03-29 16:40 | NUR ---
Messaged Dr regarding [facility] requiring written rx. DC cancelled for today.
[2022-03-29 18:00] VITALS: BP 144/70
[2022-03-29] MEDS: temazepam 15mg capsule PO PRN (20:56)
[2022-03-29] MEDS: tamsulosin 0.4mg capsule PO SCH (20:57)
[2022-03-29] MEDS: metoprolol succinate 25mg (24-HOUR) SR. Tablet PO SCH (20:57)
[2022-03-29] MEDS: atorvastatin 20mg tablet PO SCH (20:57)
[2022-03-29] MEDS: insulin glargine (Lantus) pen - multi-dose SQ SCH (21:07)
[2022-03-29 22:00] VITALS: BP 148/60
--- NOTE | 2022-03-30 06:23 | NUR ---
Report to [place] THOMPSON.
[2022-03-30] MEDS: normal saline 1000ml 1,000 ML IV SCH (06:35)
--- NOTE | 2022-03-30 07:00 | NUR ---
Patient in room [facility] 355. I have received report from Zaira THOMPSON and had the opportunity to ask questions and assume patient care.
[2022-03-30] MEDS: K and/or MAG REPLACEMENT MC SCH (07:32)
[2022-03-30 07:36] LABS: MAGNESIUM 1.8 MG/DL (1.5-2.4); POTASSIUM 3.8 MMOL/L (3.5-5.1)
[2022-03-30 08:00] VITALS: BP 150/85
[2022-03-30] MEDS: CefTRIAXone 2gm/D5W 50ml BAG 50 ML IV SCH (08:00)
[2022-03-30] MEDS: heparin, porcine 5000 units/ml vial SQ SCH (08:10)
[2022-03-30] MEDS: MULTIVIT-MIN/FERROUS GLUCONATE 9 MG/15 ML LIQUID PO SCH (08:10)
[2022-03-30 10:00] VITALS: BP 129/87
[2022-03-30] MEDS: insulin Lispro (HumaLOG) vial - multi-dose SQ SCH (10:15)
--- NOTE | 2022-03-30 15:10 | NUR ---
Reviewed Discharge instructions with patient, patient verbalized understanding, handouts given. IV previously removed. Patient accompanied by friend to lobby.
== END 2022-03-30 15:05 | disposition home health service (06) | DRG 659 ==
LOC: ER 14:29 → ED HOLD 20:41 → SUR 3N 03-25 15:02
PROVIDERS: ADMIT Internal Medicine; ATTEND Internal Medicine
PROC: B4201ZZ Computerized Tomography (CT Scan) of Abdominal Aorta using Low Osmolar Contrast (ICD-10-PCS; 2022-03-24)
PROC: B32T1ZZ Computerized Tomography (CT Scan) of Left Pulmonary Artery using Low Osmolar Contrast (ICD-10-PCS; 2022-03-24)
PROC: B3201ZZ Computerized Tomography (CT Scan) of Thoracic Aorta using Low Osmolar Contrast (ICD-10-PCS; 2022-03-24)
PROC: B32S1ZZ Computerized Tomography (CT Scan) of Right Pulmonary Artery using Low Osmolar Contrast (ICD-10-PCS; 2022-03-24)
PROC: BT141ZZ Fluoroscopy of Kidneys, Ureters and Bladder using Low Osmolar Contrast (ICD-10-PCS; 2022-03-25)
PROC: 0T788DZ Dilation of Bilateral Ureters with Intraluminal Device, Via Natural or Artificial Opening Endoscopic (ICD-10-PCS; principal; 2022-03-25 12:57)
DX: N20.2 Calculus of kidney with calculus of ureter (principal); G93.41 Metabolic encephalopathy; N13.6 Pyonephrosis; N17.9 Acute kidney failure, unspecified; I48.20 Chronic atrial fibrillation, unspecified; Z20.822 Contact with and (suspected) exposure to COVID-19; Z66 Do not resuscitate; N18.30 Chronic kidney disease, stage 3 unspecified; E11.22 Type 2 diabetes mellitus with diabetic chronic kidney disease; Z60.2 Problems related to living alone; E11.42 Type 2 diabetes mellitus with diabetic polyneuropathy; E78.00 Pure hypercholesterolemia, unspecified; E87.6 Hypokalemia; F03.90 Unspecified dementia, unspecified severity, without behavioral disturbance, psychotic disturbance, mood disturbance, and anxiety; I12.9 Hypertensive chronic kidney disease with stage 1 through stage 4 chronic kidney disease, or unspecified chronic kidney disease; J44.9 Chronic obstructive pulmonary disease, unspecified; N40.0 Benign prostatic hyperplasia without lower urinary tract symptoms; R29.6 Repeated falls; Z79.4 Long term (current) use of insulin; Z87.442 Personal history of urinary calculi; Z79.84 Long term (current) use of oral hypoglycemic drugs; Z79.899 Other long term (current) drug therapy
CPT/HCPCS: 36415; 70450; 71045; 71275; 74177; 74420; 76000; 80053; 81001; 82948; 83036; 83605; 83735; 83880; 84132; 84145; 84484; 85025; 85379; 87040; 87081; 87088; 87635; 96365; 97162; 97530; 97535; 99285; A4349; A4618; C1769; C2617; C9803; G0378; J0696; J1644; J1815; J2060; J2175; J2250; J2270; J2704; J3010; J3490; J7030; Q9967

== ENCOUNTER 2022-07-20 07:34 | Emergency (ER) | payer OTHER, MEDICARE ==
[~2022-07-20] VITALS: Ht 182.9 cm; Wt 91.0 kg
[~2022-07-20 07:34] MED LIST changes: -ACET-75 PO; -ALB0.5UD IH; +ALOG12.52 PO; -ALOG25TA2 PO; +ATOR-2 PO; -BISA-155 PO; -CETI10TA15 PO; +DEXT1TAB46 PO; -DONE10TA19 PO; -EMPA25TA PO; -GABA-530 PO; +GABA300C PO; -KETO5DRO3 RIGHTEYE; -METO-384 PO; +METO-395 PO; -OFLO5DRO LEFTEYE; -ONDA4TAB6 PO; -POLY17PO10 PO; -PRED5DRO3 RIGHTEYE; -TIOT4MIS3 INH; +tamsulosin capsule PO
[2022-07-20 08:11] LABS: CLARITY,URINE CLOUDY (Clear); COLOR,URINE YELLOW (Yellow); GLUCOSE, URINE 100 mg/dl (Neg); KETONES,URINE TRACE mg/dl (Neg); LEUKOCYTE ESTERASE ,URINE SMALL (Neg); NITRITES, URINE NEGATIVE (Neg); OCCULT BLOOD,URINE LARGE (Neg); PH,URINE 6.5 (4.8-8.0); PROTEIN,URINE 30 mg/dl (Neg); UROBILINOGEN,URINE 0.2 E.U/dL (0.2-1.0)
[2022-07-20 08:12] LABS: UA COLLECTION TYPE CLN CATCH MIDSTREAM
[2022-07-20 08:25] LABS: MUCUS STRANDS FEW /LPF (Neg); RBC,URINE TNTC /HPF (0-2); SQUAMOUS EPITHELIAL CELL,UR FEW /LPF (FEW)
[2022-07-20 08:27] LABS: BACTERIA,URINE FEW /HPF (Neg)
[2022-07-20 08:28] LABS: RENAL CELLS, URINE FEW /HPF
[2022-07-20 09:33] LABS: BASOPHILS # (AUTO) 0.1 X10'3 (0-0.2); BASOPHILS % (AUTO) 0.6 % (0-1); EOSINOPHILS # (AUTO) 0.1 X10'3 (0-0.9); EOSINOPHILS % (AUTO) 1.7 % (0-6); HEMATOCRIT 39.4 % (42.0-52.0); HEMOGLOBIN 13.1 g/dl (14.0-17.9); LYMPHOCYTES # (AUTO) 1.4 X10'3 (1.1-4.8); LYMPHOCYTES % (AUTO) 17.3 % (21-51); MEAN CORPUSCULAR HGB CONC 33.2 g/dL (33.0-36.5); MEAN CORPUSCULAR VOLUME 90.3 FL (78-98); MEAN PLATELET VOLUME 7.3 FL (7.4-10.4); MONOCYTES # (AUTO) 0.7 X10'3 (0-0.9); MONOCYTES % (AUTO) 8.6 % (2-12); NEUTROPHILS % (AUTO) 71.8 % (42-75); PLATELET COUNT 281 X10'3 (140-440); RED BLOOD COUNT 4.36 X10'6 (4.70-6.10); RED CELL DISTRIBUTION WIDTH 13.1 % (11.5-14.5); WHITE BLOOD COUNT 8.4 X10'3 (4.5-11.0)
[2022-07-20 09:51] LABS: ALANINE AMINOTRANSFERASE 16 U/L (12-78); ALBUMIN 3.5 G/DL (3.4-5.0); ALBUMIN/GLOBULIN RATIO 0.9 (1.1-1.5); ALKALINE PHOSPHATASE 91 IU/L (46-116); ASPARTATE AMINO TRANSFERASE 22 U/L (10-37); BILIRUBIN,TOTAL 0.7 MG/DL (0.1-1.0); BLOOD UREA NITROGEN 16 MG/DL (7-18); BUN/CREATININE RATIO 12.8 (5.4-32.0); CREATININE 1.25 MG/DL (0.60-1.10); GLUCOSE 185 MG/DL (70-104); TOTAL CARBON DIOXIDE 28.4 MMOL/L (24-32); TOTAL PROTEIN 7.3 G/DL (6.4-8.2); eGFR 56 ML/MIN
[2022-07-20 09:57] LABS: APTT 28 SECONDS (22-32)
[2022-07-20] MEDS ORDERED: iohexol 300mg/ml 100ml inj. ONE (10:09)
[2022-07-20] MEDS ORDERED: MESSAGE TO NURSING PO NR (10:15)
[2022-07-20 10:22] LABS: ANION GAP 9 (8-16); CHLORIDE 105 MMOL/L (99-107); POTASSIUM 3.9 MMOL/L (3.5-5.1); SODIUM 142 MMOL/L (135-145)
[2022-07-20] MEDS ORDERED: acetaminophen 325mg tablet PO ONE (10:45)
[2022-07-20] MEDS ORDERED: CefTRIAXone/D5W-Rocephin 1gm 50 ML IV ONE (11:05)
[2022-07-20] MEDS ORDERED: CEFD300C3 PO (11:06)
[2022-07-20 11:58] VITALS: BP 152/73
== END 2022-07-20 12:00 | disposition home or self-care (01) ==
LOC: ER 07:34
DX: N39.0 Urinary tract infection, site not specified (principal); R31.9 Hematuria, unspecified; E78.00 Pure hypercholesterolemia, unspecified; I10 Essential (primary) hypertension; J44.9 Chronic obstructive pulmonary disease, unspecified; E11.9 Type 2 diabetes mellitus without complications
CPT/HCPCS: 36415; 74177; 80053; 81001; 85025; 85610; 85730; 87088; 93005; 96365; 99285; J0696; J3490; Q9967

== ENCOUNTER 2023-06-20 14:41 | Inpatient (IN) | payer OTHER, MEDICARE ==
[~2023-06-20] VITALS: Ht 182.9 cm; Wt 100.0 kg
[~2023-06-20 14:41] MED LIST changes: -DEXT1TAB46 PO; -GABA300C PO; -INSU100I25 SQ; +INSU100I27 SQ; +METF-900 PO; -METF500T PO
[2023-06-20] MEDS ORDERED: acetaminophen 325mg tablet PO ONE (15:30)
[2023-06-20 16:09] LABS: BASOPHILS % (AUTO) 0.4 % (0-1); EOSINOPHILS % (AUTO) 0 % (0-6); HEMATOCRIT 37.5 % (42.0-52.0); HEMOGLOBIN 12.6 g/dl (14.0-17.9); LYMPHOCYTES # (AUTO) 0.5 X10'3 (1.1-4.8); LYMPHOCYTES % (AUTO) 5.4 % (21-51); MEAN CORPUSCULAR HEMOGLOBIN 31.1 PG (27.0-31.0); MEAN CORPUSCULAR HGB CONC 33.7 g/dL (33.0-36.5); MEAN CORPUSCULAR VOLUME 92.6 FL (78-98); MEAN PLATELET VOLUME 7.4 FL (7.4-10.4); MONOCYTES # (AUTO) 1.1 X10'3 (0-0.9); MONOCYTES % (AUTO) 11.8 % (2-12); NEUTROPHILS # (AUTO) 7.7 X10'3 (1.8-7.7); NEUTROPHILS % (AUTO) 82.4 % (42-75); PLATELET COUNT 245 X10'3 (140-440); RED BLOOD COUNT 4.05 X10'6 (4.70-6.10); RED CELL DISTRIBUTION WIDTH 12.8 % (11.5-14.5); WHITE BLOOD COUNT 9.4 X10'3 (4.5-11.0)
[2023-06-20] MEDS ORDERED: CefTRIAXone 2gm/D5W 50ml BAG 50 ML IV ONE (16:22)
[2023-06-20 16:24] LABS: ALANINE AMINOTRANSFERASE 15 U/L (12-78); ALBUMIN 3.8 G/DL (3.4-5.0); ALBUMIN/GLOBULIN RATIO 0.9 (1.1-1.5); ALKALINE PHOSPHATASE 82 IU/L (46-116); ANION GAP 11 (8-16); ASPARTATE AMINO TRANSFERASE 16 U/L (10-37); BILIRUBIN,TOTAL 0.4 MG/DL (0.1-1.0); BLOOD UREA NITROGEN 24 MG/DL (7-18); BUN/CREATININE RATIO 14.5 (10.0-20.0); CALCIUM 9.6 MG/DL (8.5-10.1); CHLORIDE 99 MMOL/L (99-107); CREATININE 1.66 MG/DL (0.60-1.10); GLUCOSE 197 MG/DL (70-104); POTASSIUM 4.2 MMOL/L (3.5-5.1); SODIUM 136 MMOL/L (135-145); TOTAL CARBON DIOXIDE 25.8 MMOL/L (24-32); TOTAL PROTEIN 8.2 G/DL (6.4-8.2); eCRCL 39 ML/MIN; eGFR 40 ML/MIN
[2023-06-20] MEDS ORDERED: normal saline 1000ML IV soln IVB ONE (16:25)
[2023-06-20] MEDS ORDERED: normal saline 500ML IV soln IV ONE (16:25)
[2023-06-20 16:31] LABS: PRO BRAIN NATRIURETIC PEPTIDE 1966 PG/ML (0-450)
[2023-06-20] MEDS ORDERED: ipratropium/albuterol 3ml nebule NEB ONE (19:45)
[2023-06-20 19:49] LABS: BILIRUBIN,URINE NEGATIVE (Neg); CLARITY,URINE SLIGHTLY CLOUDY (Clear); COLOR,URINE YELLOW (Yellow); GLUCOSE, URINE 250 mg/dl (Neg); KETONES,URINE 40 mg/dl (Neg); LEUKOCYTE ESTERASE ,URINE NEGATIVE (Neg); NITRITES, URINE NEGATIVE (Neg); OCCULT BLOOD,URINE SMALL (Neg); PH,URINE 6.5 (4.8-8.0); PROTEIN,URINE 30 mg/dl (Neg); UROBILINOGEN,URINE 0.2 E.U/dL (0.2-1.0)
[2023-06-20 19:50] VITALS: PULSE 106; RESP 20; O2SAT 91
[2023-06-20 19:54] LABS: UA COLLECTION TYPE CLN CATCH MIDSTREAM
[2023-06-20 19:58] VITALS: PULSE 110; RESP 20; O2SAT 91
[2023-06-20 20:04] LABS: BACTERIA,URINE 1+ /HPF (Neg); MUCUS STRANDS NONE SEEN /LPF (Neg); RBC,URINE 0-2 /HPF (0-2); SQUAMOUS EPITHELIAL CELL,UR FEW /LPF (FEW); TRANSITIONAL EPI CELLS,URINE FEW /HPF
[2023-06-20 20:05] LABS: FINE GRANULAR CAST 0-3 /LPF (NEGATIVE); HYALINE CASTS 0-3 /LPF (NEGATIVE); WBC CLUMPS,URINE FEW /HPF (NEGATIVE)
[2023-06-20 20:06] LABS: COARSE GRANULAR CAST 0-3 /LPF (NEGATIVE)
[2023-06-20] MEDS ORDERED: LANTUS SUBCUT (20:50)
[2023-06-20] MEDS ORDERED: MAGN64TA8 PO (20:50)
[2023-06-20] MEDS ORDERED: magnesium 4gm in 100ml NS 100 ML IV PRN (21:35)
[2023-06-20] MEDS ORDERED: HYDROcodone/acetaminophen 5mg/325mg tablet PO PRN (21:35)
[2023-06-20] MEDS ORDERED: acetaminophen 325mg tablet PO PRN ×2 (21:35)
[2023-06-20] MEDS ORDERED: ondansetron/PF 4mg/2ml inj IV PRN (21:35)
[2023-06-20] MEDS ORDERED: potassium Cl 40MEQ/1/2NS 520ml 520 ML IV PRN (21:35)
[2023-06-20] MEDS ORDERED: normal saline 1000ml 1,000 ML IV SCH (21:35)
[2023-06-20] MEDS ORDERED: magnesium 2GM in 50ml NS 50 ML IV PRN (21:35)
[2023-06-20] MEDS ORDERED: magnesium Cl slow-release 64mg tablet PO PRN (21:35)
[2023-06-20] MEDS ORDERED: morphine 2 MG/ML inj. syringe IV PRN (21:35)
[2023-06-20] MEDS ORDERED: potassium Cl 20 mEq SR tablet PO PRN ×2 (21:35)
[2023-06-21] MEDS ORDERED: ipratropium/albuterol 3ml nebule NEB PRN (01:55)
[2023-06-21 02:01] VITALS: PULSE 92; RESP 20; O2SAT 90
[2023-06-21 02:35] LABS: BASOPHILS % (AUTO) 0.2 % (0-1); EOSINOPHILS % (AUTO) 0 % (0-6); HEMATOCRIT 36.4 % (42.0-52.0); HEMOGLOBIN 12.1 g/dl (14.0-17.9); LYMPHOCYTES # (AUTO) 0.3 X10'3 (1.1-4.8); LYMPHOCYTES % (AUTO) 2.4 % (21-51); MEAN CORPUSCULAR HGB CONC 33.2 g/dL (33.0-36.5); MEAN CORPUSCULAR VOLUME 93.5 FL (78-98); MEAN PLATELET VOLUME 7.3 FL (7.4-10.4); MONOCYTES # (AUTO) 1.4 X10'3 (0-0.9); MONOCYTES % (AUTO) 11.4 % (2-12); NEUTROPHILS # (AUTO) 10.2 X10'3 (1.8-7.7); PLATELET COUNT 220 X10'3 (140-440); RED BLOOD COUNT 3.89 X10'6 (4.70-6.10); RED CELL DISTRIBUTION WIDTH 13.1 % (11.5-14.5); WHITE BLOOD COUNT 11.9 X10'3 (4.5-11.0)
[2023-06-21 02:48] LABS: ALANINE AMINOTRANSFERASE 10 U/L (12-78); ALBUMIN 3.3 G/DL (3.4-5.0); ALBUMIN/GLOBULIN RATIO 0.8 (1.1-1.5); ALKALINE PHOSPHATASE 69 IU/L (46-116); ANION GAP 13 (8-16); ASPARTATE AMINO TRANSFERASE 19 U/L (10-37); BILIRUBIN,TOTAL 0.4 MG/DL (0.1-1.0); BLOOD UREA NITROGEN 24 MG/DL (7-18); BUN/CREATININE RATIO 13.6 (10.0-20.0); CHLORIDE 98 MMOL/L (99-107); CREATININE 1.76 MG/DL (0.60-1.10); GLUCOSE 265 MG/DL (70-104); POTASSIUM 4.1 MMOL/L (3.5-5.1); SODIUM 134 MMOL/L (135-145); TOTAL CARBON DIOXIDE 22.8 MMOL/L (24-32); TOTAL PROTEIN 7.3 G/DL (6.4-8.2); eCRCL 37 ML/MIN; eGFR 37 ML/MIN
[2023-06-21] MEDS: CefTRIAXone 2gm/D5W 50ml BAG 50 ML IV SCH (08:17)
[2023-06-21] MEDS: heparin, porcine 5000 units/ml vial SQ SCH ×2 (08:17→22:25)
[2023-06-21] MEDS: ezetimibe 10mg tablet PO SCH (08:42)
[2023-06-21] MEDS ORDERED: MESSAGE TO PHARMACY PO ONE (11:25)
[2023-06-21] MEDS ORDERED: dextrose 50%-water 50ml dispensing syringe IV PRN ×2 (11:25)
[2023-06-21] MEDS ORDERED: glucagon, human recombinant 1mg kit SUBCUT PRN (11:25)
[2023-06-21] MEDS ORDERED: DEXTROSE 15 GM of carb/4 tabs (each vial/BOTTLE has 4 tablets) PO PRN ×2 (11:25)
[2023-06-21] MEDS: normal saline 1000ml 1,000 ML IV SCH ×2 (11:46→22:25)
[2023-06-21 12:39] VITALS: PULSE 85; RESP 30; O2SAT 89
[2023-06-21 12:47] VITALS: PULSE 88; RESP 16
[2023-06-21] MEDS ORDERED: POTASSIUM BICARB 20meq eff tab 20 MEQ TABLET.EFF PO SCH (13:20)
[2023-06-21 13:25] LABS: HEMOGLOBIN A1C 7.4 % (4.5-6.2)
[2023-06-21 15:49] LABS: ABG BASE EXCESS -2.4 mmol/L (-2.0-2.0); ABG HCO3 21.5 mmol/L (22.0-26.0); ABG OXYGEN SATURATION 95.4 % (94-97); ABG PCO2 (T) 34.3 mmHg (35.0-48.0); ABG PH (T) 7.414 (7.340-7.440); ABG PO2 (T) 77.4 mmHg (75.0-100.0); ALLEN'S TEST POSITIVE; FCOHb 0.3 % (0.0-3.9); FHHb 4.6 % (0.0-5.0); FLOW 16 L/min; FMetHb 0.1 % (0.0-1.5); MODE MASK - NRB; TOTAL HEMOGLOBIN 13.1 G/dl (14.0-17.9)
[2023-06-21] MEDS: azithromycin/NS 500mg/250ml 250 ML IV SCH (16:07)
[2023-06-21] MEDS: magnesium Cl slow-release 64mg tablet PO SCH (20:00)
[2023-06-21 20:06] VITALS: PULSE 87; RESP 22; O2SAT 96
[2023-06-21] MEDS ORDERED: insulin glargine (Lantus) pen - multi-dose SQ SCH (21:00)
[2023-06-21] MEDS: metoprolol succinate 25mg (24-HOUR) SR. Tablet PO SCH (21:00)
[2023-06-21] MEDS: tamsulosin 0.4mg capsule PO SCH (21:00)
[2023-06-21] MEDS: insulin glargine (Lantus) pen - multi-dose SQ SCH (23:01)
[2023-06-22] VITALS (15 sets, daily range): BP systolic 100–134; BP diastolic 45–56; PULSE 60–87; RESP 16–23; TEMP 97.6–98.9; O2SAT 92–99
[2023-06-22] MEDS ORDERED: VANCOmycin 2,000MG in NS 500ml IV soln IV ONE (07:15)
[2023-06-22] MEDS: azithromycin/NS 500mg/250ml 250 ML IV SCH (07:26)
[2023-06-22] MEDS: ezetimibe 10mg tablet PO SCH (07:28)
[2023-06-22] MEDS: heparin, porcine 5000 units/ml vial SQ SCH ×4 (07:28→20:20)
[2023-06-22] MEDS: magnesium Cl slow-release 64mg tablet PO SCH ×2 (07:35→20:20)
[2023-06-22] MEDS: dexamethasone 4mg/ml inj IV SCH (08:05)
[2023-06-22] MEDS: insulin Lispro (HumaLOG) vial - multi-dose SQ SCH ×3 (08:38→20:19)
[2023-06-22 08:42] LABS: BASOPHILS % (AUTO) 0.4 % (0-1); EOSINOPHILS % (AUTO) 0 % (0-6); HEMATOCRIT 35.1 % (42.0-52.0); HEMOGLOBIN 11.8 g/dl (14.0-17.9); LYMPHOCYTES # (AUTO) 0.8 X10'3 (1.1-4.8); LYMPHOCYTES % (AUTO) 7.9 % (21-51); MEAN CORPUSCULAR HEMOGLOBIN 31.2 PG (27.0-31.0); MEAN CORPUSCULAR HGB CONC 33.8 g/dL (33.0-36.5); MEAN CORPUSCULAR VOLUME 92.4 FL (78-98); MEAN PLATELET VOLUME 8.3 FL (7.4-10.4); MONOCYTES # (AUTO) 0.9 X10'3 (0-0.9); MONOCYTES % (AUTO) 9.1 % (2-12); NEUTROPHILS % (AUTO) 82.6 % (42-75); PLATELET COUNT 201 X10'3 (140-440); RED BLOOD COUNT 3.79 X10'6 (4.70-6.10); RED CELL DISTRIBUTION WIDTH 12.9 % (11.5-14.5); WHITE BLOOD COUNT 9.6 X10'3 (4.5-11.0)
[2023-06-22] MEDS: CefTRIAXone 2gm/D5W 50ml BAG 50 ML IV SCH (09:08)
[2023-06-22 09:09] LABS: ALANINE AMINOTRANSFERASE 7 U/L (12-78); ALBUMIN 2.5 G/DL (3.4-5.0); ALBUMIN/GLOBULIN RATIO 0.6 (1.1-1.5); ALKALINE PHOSPHATASE 54 IU/L (46-116); ANION GAP 12 (8-16); ASPARTATE AMINO TRANSFERASE 23 U/L (10-37); BILIRUBIN,TOTAL 0.2 MG/DL (0.1-1.0); BLOOD UREA NITROGEN 40 MG/DL (7-18); CALCIUM 8.5 MG/DL (8.5-10.1); CHLORIDE 104 MMOL/L (99-107); CREATININE 1.74 MG/DL (0.60-1.10); GLUCOSE 244 MG/DL (70-104); POTASSIUM 3.9 MMOL/L (3.5-5.1); SODIUM 138 MMOL/L (135-145); TOTAL CARBON DIOXIDE 22.4 MMOL/L (24-32); TOTAL PROTEIN 6.7 G/DL (6.4-8.2); eCRCL 37 ML/MIN; eGFR 38 ML/MIN
[2023-06-22] MEDS ORDERED: REMDESIVIR INJ 200 MG in normal saline 100ml IV soln 100 ML IV ONE (10:15)
[2023-06-22] MEDS: BARICITINIB 2 MG TABLET PO SCH (12:35)
[2023-06-22] MEDS: normal saline 1000ml 1,000 ML IV SCH (18:12)
[2023-06-22] MEDS: tamsulosin 0.4mg capsule PO SCH (20:20)
[2023-06-22] MEDS: metoprolol succinate 25mg (24-HOUR) SR. Tablet PO SCH (20:20)
[2023-06-22] MEDS: insulin glargine (Lantus) pen - multi-dose SQ SCH ×2 (20:46→20:51)
[2023-06-23] VITALS (8 sets, daily range): BP systolic 114–134; BP diastolic 45–53; PULSE 59–91; RESP 16–22; TEMP 97.4–99.6; O2SAT 91–98
[2023-06-23 05:01] LABS: BASOPHILS % (AUTO) 0.2 % (0-1); EOSINOPHILS % (AUTO) 0 % (0-6); HEMATOCRIT 33.2 % (42.0-52.0); HEMOGLOBIN 11.2 g/dl (14.0-17.9); LYMPHOCYTES # (AUTO) 0.8 X10'3 (1.1-4.8); MEAN CORPUSCULAR HEMOGLOBIN 31.3 PG (27.0-31.0); MEAN CORPUSCULAR HGB CONC 33.8 g/dL (33.0-36.5); MEAN CORPUSCULAR VOLUME 92.5 FL (78-98); MEAN PLATELET VOLUME 8.2 FL (7.4-10.4); MONOCYTES # (AUTO) 0.6 X10'3 (0-0.9); MONOCYTES % (AUTO) 6.1 % (2-12); NEUTROPHILS # (AUTO) 7.7 X10'3 (1.8-7.7); NEUTROPHILS % (AUTO) 84.7 % (42-75); PLATELET COUNT 196 X10'3 (140-440); RED BLOOD COUNT 3.59 X10'6 (4.70-6.10); RED CELL DISTRIBUTION WIDTH 13.3 % (11.5-14.5); WHITE BLOOD COUNT 9.1 X10'3 (4.5-11.0)
[2023-06-23 05:20] LABS: ALANINE AMINOTRANSFERASE 10 U/L (12-78); ALBUMIN 2.4 G/DL (3.4-5.0); ALBUMIN/GLOBULIN RATIO 0.6 (1.1-1.5); ALKALINE PHOSPHATASE 54 IU/L (46-116); ANION GAP 9 (8-16); ASPARTATE AMINO TRANSFERASE 24 U/L (10-37); BILIRUBIN,TOTAL 0.2 MG/DL (0.1-1.0); BLOOD UREA NITROGEN 54 MG/DL (7-18); CALCIUM 9.1 MG/DL (8.5-10.1); CHLORIDE 107 MMOL/L (99-107); CREATININE 1.74 MG/DL (0.60-1.10); GLUCOSE 191 MG/DL (70-104); POTASSIUM 4.2 MMOL/L (3.5-5.1); SODIUM 140 MMOL/L (135-145); TOTAL CARBON DIOXIDE 24.3 MMOL/L (24-32); TOTAL PROTEIN 6.7 G/DL (6.4-8.2); eCRCL 37 ML/MIN; eGFR 38 ML/MIN
[2023-06-23] MEDS: dexamethasone 4mg/ml inj IV SCH (09:39)
[2023-06-23] MEDS: CefTRIAXone 2gm/D5W 50ml BAG 50 ML IV SCH (09:41)
[2023-06-23] MEDS: ezetimibe 10mg tablet PO SCH (09:41)
[2023-06-23] MEDS: magnesium Cl slow-release 64mg tablet PO SCH ×2 (09:42→19:59)
[2023-06-23] MEDS: heparin, porcine 5000 units/ml vial SQ SCH ×3 (09:43→20:03)
[2023-06-23] MEDS: azithromycin/NS 500mg/250ml 250 ML IV SCH (09:47)
[2023-06-23] MEDS ORDERED: vancomycin/NS 1 GM ADD-VANTAGE 250 ML IV SCH (10:00)
[2023-06-23] MEDS: insulin Lispro (HumaLOG) vial - multi-dose SQ SCH ×3 (10:03→19:52)
[2023-06-23] MEDS: BARICITINIB 2 MG TABLET PO SCH (10:07)
[2023-06-23] MEDS: REMDESIVIR INJ 100 MG in normal saline 100ml IV soln 100 ML IV SCH (10:10)
[2023-06-23] MEDS: normal saline 1000ml 1,000 ML IV SCH (14:26)
[2023-06-23] MEDS: metoprolol succinate 25mg (24-HOUR) SR. Tablet PO SCH (19:59)
[2023-06-23] MEDS: tamsulosin 0.4mg capsule PO SCH (19:59)
[2023-06-23] MEDS: insulin glargine (Lantus) pen - multi-dose SQ SCH ×2 (21:00)
[2023-06-24] VITALS (7 sets, daily range): BP systolic 111–139; BP diastolic 45–56; PULSE 61–76; RESP 16–19; TEMP 97.7–98.4; O2SAT 91–98
[2023-06-24 05:39] LABS: BASOPHILS % (AUTO) 0.5 % (0-1); EOSINOPHILS % (AUTO) 0 % (0-6); HEMATOCRIT 31.6 % (42.0-52.0); HEMOGLOBIN 10.7 g/dl (14.0-17.9); LYMPHOCYTES # (AUTO) 0.7 X10'3 (1.1-4.8); LYMPHOCYTES % (AUTO) 7.8 % (21-51); MEAN CORPUSCULAR HGB CONC 33.8 g/dL (33.0-36.5); MEAN CORPUSCULAR VOLUME 91.8 FL (78-98); MEAN PLATELET VOLUME 8.3 FL (7.4-10.4); MONOCYTES # (AUTO) 0.4 X10'3 (0-0.9); MONOCYTES % (AUTO) 5.2 % (2-12); NEUTROPHILS # (AUTO) 7.4 X10'3 (1.8-7.7); NEUTROPHILS % (AUTO) 86.5 % (42-75); PLATELET COUNT 230 X10'3 (140-440); RED BLOOD COUNT 3.44 X10'6 (4.70-6.10); RED CELL DISTRIBUTION WIDTH 12.9 % (11.5-14.5); WHITE BLOOD COUNT 8.5 X10'3 (4.5-11.0)
[2023-06-24 06:13] LABS: ALANINE AMINOTRANSFERASE 15 U/L (12-78); ALBUMIN 2.2 G/DL (3.4-5.0); ALBUMIN/GLOBULIN RATIO 0.5 (1.1-1.5); ALKALINE PHOSPHATASE 52 IU/L (46-116); ANION GAP 8 (8-16); ASPARTATE AMINO TRANSFERASE 26 U/L (10-37); BILIRUBIN,TOTAL 0.2 MG/DL (0.1-1.0); BLOOD UREA NITROGEN 59 MG/DL (7-18); BUN/CREATININE RATIO 37.6 (10.0-20.0); CALCIUM 8.9 MG/DL (8.5-10.1); CHLORIDE 107 MMOL/L (99-107); CREATININE 1.57 MG/DL (0.60-1.10); GLUCOSE 70 MG/DL (70-104); SODIUM 139 MMOL/L (135-145); TOTAL CARBON DIOXIDE 24.5 MMOL/L (24-32); TOTAL PROTEIN 6.7 G/DL (6.4-8.2); eCRCL 41 ML/MIN; eGFR 43 ML/MIN
[2023-06-24] MEDS: dexamethasone 4mg/ml inj IV SCH (08:02)
[2023-06-24] MEDS: magnesium Cl slow-release 64mg tablet PO SCH (08:02)
[2023-06-24] MEDS: CefTRIAXone 2gm/D5W 50ml BAG 50 ML IV SCH (08:02)
[2023-06-24] MEDS: REMDESIVIR INJ 100 MG in normal saline 100ml IV soln 100 ML IV SCH (08:03)
[2023-06-24] MEDS: heparin, porcine 5000 units/ml vial SQ SCH ×2 (08:03→16:00)
[2023-06-24] MEDS: ezetimibe 10mg tablet PO SCH (08:14)
[2023-06-24] MEDS: normal saline 1000ml 1,000 ML IV SCH (10:12)
[2023-06-24 14:08] LABS: D-DIMER 0.78 MG/L FEU (0-0.50)
[2023-06-24] MEDS ORDERED: ASPI81TA52 PO (14:33)
[2023-06-24] MEDS ORDERED: ALBU90AE INH (14:33)
[2023-06-24] MEDS ORDERED: DEXA6TAB PO (14:33)
[2023-06-24] MEDS ORDERED: CEFD300C3 PO (14:33)
[2023-06-25] MEDS ORDERED: VANCOMYCIN LEVEL IV ONE (09:30)
== END 2023-06-24 19:34 | disposition home health service (06) | DRG 871 ==
LOC: ER 14:41 → ED HOLD 21:40 → PCU 3S 06-22 10:55
PROVIDERS: ADMIT Internal Medicine; ATTEND Family Medicine
PROC: XW033E5 Introduction of Remdesivir Anti-infective into Peripheral Vein, Percutaneous Approach, New Technology Group 5 (ICD-10-PCS; principal; 2023-06-22)
DX: A41.89 Other specified sepsis (principal); J15.9 Unspecified bacterial pneumonia; J96.01 Acute respiratory failure with hypoxia; U07.1 COVID-19; N17.0 Acute kidney failure with tubular necrosis; J69.0 Pneumonitis due to inhalation of food and vomit; N39.0 Urinary tract infection, site not specified; J44.0 Chronic obstructive pulmonary disease with (acute) lower respiratory infection; F03.90 Unspecified dementia, unspecified severity, without behavioral disturbance, psychotic disturbance, mood disturbance, and anxiety; E78.00 Pure hypercholesterolemia, unspecified; G89.29 Other chronic pain; M54.9 Dorsalgia, unspecified; Z66 Do not resuscitate; E11.42 Type 2 diabetes mellitus with diabetic polyneuropathy; I48.91 Unspecified atrial fibrillation; I11.0 Hypertensive heart disease with heart failure; I50.9 Heart failure, unspecified; E11.65 Type 2 diabetes mellitus with hyperglycemia; Z79.82 Long term (current) use of aspirin; Z79.84 Long term (current) use of oral hypoglycemic drugs; Z79.899 Other long term (current) drug therapy; Z79.4 Long term (current) use of insulin
CPT/HCPCS: 36415; 36600; 71045; 71250; 74176; 80053; 81001; 82803; 82948; 83036; 83605; 83880; 84145; 85018; 85025; 85379; 85651; 86140; 87040; 87077; 87088; 87186; 87634; 87811; 92508; 92616; 93306; 94640; 94760; 97161; 97530; 99285; A4314; A4349; A4615; A4620; A4624; A6212; A6213; G0378; J0456; J0696; J1100; J1644; J1815; J3370; J3490; J7030; J7040

== ENCOUNTER 2024-11-18 14:11 | Inpatient (IN) | payer OTHER, MEDICARE ==
[~2024-11-18] VITALS: Ht 184.2 cm; Wt 68.0 kg
[~2024-11-18 14:11] MED LIST changes: +ALBU90AE INH; +ASPI81TA52 PO; +CEFD300C3 PO; +DEXA6TAB PO; -INSU100I27 SQ; +LANTUS SUBCUT; +MAGN64TA8 PO
--- NOTE | 2024-11-18 14:45 | Physician Documentation ---
History of Present Illness ~ Chief Complaint: Mechanical Fall Stated Complaint: FALL Time Seen by MD: 14:25 Primary Medical Doctor: [facility] Source: patient, EMS, senior living records Mode of Arrival: EMS HPI This is an 84-year-old male brought in by EMS from a assisted living facility, patient reports that he had a syncopal episode after getting up out of a chair to walk to the bathroom, patient reports that he walked several steps before losing consciousness and waking up on the ground, patient reports he does not take blood thinners. Patient reports that he was on the ground for several hours last night being found by staff this morning after he was able to crawl over to an emergency alert button. Patient reports pain all over with the pain worse in his buttocks and back as this is what he was lying on for most of the n ight. Patient reports feeling generally weak. Patient reports recent history of treatment for urinary tract infection. Patient reports history of similar episodes in the last six months. Tetanus within 5 Years?: Yes Medication Reconciliation Allergies: Coded Allergies: No Known Allergies (Unverified , 06/20/23) Scheduled Alogliptin Benzoate (Alogliptin), 1 TAB PO DAILY, (Reported) Aspirin (Ecotrin*), 1 TAB PO DAILY, (Reported) Atorvastatin Calcium (Atorvastatin Calcium), 1 TAB PO DAILY, (Reported) Cyanocobalamin (Vitamin B-12), 0.5 TAB PO DAILY, (Reported) Diclofenac Sodium (Diclofenac Sodium), 1 APPLIC TOP QID, (Reported) Donepezil Hcl (Donepezil Hcl), 1 TAB PO DAILY, (Reported) Insulin Glargine,Hum.rec.anlog* (Lantus*), 10 UNITS SUBCUT HS, (Reported) Lidocaine (Lidocaine Pain Relief), 1 PATCH TOP DAILY, (Reported) Meclizine Hcl (Meclizine Hcl), 2 TAB PO Q8H, (Reported) Metformin Hcl (Metformin Hcl), 2 TAB PO Q12H, (Reported) Metformin Hcl* (Metformin ER*), 2 TAB PO Q12H, (Reported) Metoprolol Succinate (Metoprolol Succinate), 1 TAB PO HS, (Reported) Metoprolol Succinate* (Toprol Xl*), 0.5 TAB PO HS, (Reported) Tamsulosin Hcl* (Flomax*), 1 CAP PO DAILY, (Reported) Scheduled PRN Acetaminophen (Acetaminophen), 1 TAB PO Q6H PRN PRN for pain or fever, (Reported) Polyethylene Glycol 8000 (Polyethylene Glycol), BID PRN for constipation, (Reported) Discontinued Medications Albuterol Sulfate (Proair Respiclick), 2 PUFFS INH Q4HPRN PRN for shortness of breath Discontinued Reason: patient no longer taking Aspirin (Aspirin EC), 1 TAB PO DAILY Discontinued Reason: patient no longer taking Atorvastatin Calcium (Atorvastatin Calcium), 1 TAB PO DAILY, (Reported) Discontinued Reason: patient no longer taking Cefdinir* (Cefdinir*), 1 CAP PO Q12H Discontinued Reason: patient no longer taking Dexamethasone (Dexamethasone), 1 TAB PO BID Discontinued Reason: patient no longer taking Ezetimibe (Zetia), 1 TAB PO DAILY, (Reported) Discontinued Reason: patient no longer taking Insulin Glargine,Hum.rec.anlog* (Lantus*), 10 UNITS SUBCUT HS, (Reported) Discontinued Reason: patient no longer taking Magnesium Chloride (Slow-Mag), 1 TAB PO Q12H, (Reported) Discontinued Reason: patient no longer taking Multivitamin with Minerals (Daily Vitamin Formula-Minerals), 1 TAB PO DAILY, (Reported) Discontinued Reason: patient no longer taking [tamsulosin capsule], 0.4 MG PO HS Discontinued Reason: patient no longer taking Past Medical History Past Medical History: Dementia, Peripheral Neuropathy, Atrial Fibrillation, High Cholesterol, Hypertension, COPD, Kidney Stones, Diabetes, *MUSCULOSKELETAL*, Chronic Back Pain Past Surgical History: other Other Past Surgical History: Ureteral stenting Alcohol Use: None Drug Use: none Lives In: Home Review of Systems ROS Syncopal episode, weakness, body aches, and buttock pain as stated above in the HPI, otherwise all systems are reviewed and negative. Physical Exam Vital Signs: Temperature: 98.1, Source: Oral, Heart Rate: 66, Respiratory Rate: 17, BP: 127/55, Pulse Oximetry: 98, Weight: 68.000 Oxygen Flow Rate: 0 Physical Exam VITALS: Reviewed and as above. GENERAL: Alert, nontoxic appearing, no apparent distress. HEENT: PERRLA, EOMI, in C-collar tenderness to palpation to posterior neck including central C-spine, no step-offs, no crepitus RESPIRATORY: No increased work of breathing, no respiratory distress, speaking in full clear sentences, clear lung sounds in all marrero CHEST: Mildly tender to palpation without crepitus, deformity, ecchymosis, or paradoxical movement CV: Regular rate and rhythm no murmur BACK: Generally tender to palpation without central spinal tenderness and no step-offs or crepitus GI: Abdomen generally mildly tender to palpation without rebound or guarding, MUSCULOSKELETAL: Limbs generally tender to palpation without deformity or point tenderness SKIN: Dry and intact NEURO: Oriented to person, place, time, and event Progress Progress Note 191: I spoke with hospitalist resident Dr. Valverde who kindly accepts patient for admission Results/Orders Results/Orders Orders - LESLIE CHESTER [employer]UCATION [employer] Chest,Single View (11/18/24 14:35) Monitor (11/18/24 14:35) Saline Lock (11/18/24 14:35) Oxygen (11/18/24 14:35) Straight Cath For Urine Sample (11/18/24 14:35) Ct Cervical Spine (11/18/24 15:30) Ct Head (11/18/24 15:30) Ct T&L Spine (11/18/24 15:30) Cult Urine + [place] [facility] (11/18/24 18:28) Page Hospitalist (11/18/24 19:08) Fill Out Med Reconciliation (11/18/24 19:08) Completed Orders - LESLIE CHESTER [employer] Chest,Single View (11/18/24 14:35) Cbc/Diff (11/18/24 14:35) BMP (11/18/24 14:35) Electrocardiogram (11/18/24 14:35) Hs Troponin I W Calculations (11/18/24 14:35) Hs Troponin I W Calculations (11/18/24 16:35) CK (11/18/24 14:35) Ct Cervical Spine (11/18/24 15:30) Ct Head (11/18/24 15:30) Ct T&L Spine (11/18/24 15:30) Normal Saline 1000ml (Sodium Chloride 10 (11/18/24 16:15) Ua W/Microscopic, Cult If Ind (11/18/24 18:13) Cefuroxime Axetil Tablet (Ceftin) (11/18/24 19:05) Hydrocodone/Apap 5/325mg Tab ([place] /32 (11/18/24 19:10) Hgb A1c (11/18/24 14:18) Medications Received in ER Medications (Trade) Dose Ordered Sig/Tamara Route PRN Reason Start Time Stop Time Status Last Admin Dose Admin (Ceftin) 500 mg ONCE ONCE PO 11/18/24 19:05 11/18/24 19:06 DC 11/18/24 19:58 500 MG Vital Signs 11/18/24 11/18/24 11/18/24 14:13 14:20 18:30 Temp 98.1 Pulse 66 60 Resp 18 17 15 B/P (MAP) 127/55 131/50 (77) Pulse Ox 98 98 O2 Flow Rate 0 Laboratory Tests Test 11/18/24 14:18 11/18/24 16:36 11/18/24 18:13 White Blood Count 9.4 Red Blood Count 3.50 L Hemoglobin 10.7 L Hematocrit 32.0 L Mean Corpuscular Volume 91.3 Mean Corpuscular Hemoglobin 30.5 Mean Corpuscular Hemoglobin Concent 33.4 Red Cell Distribution Width 13.5 Platelet Count 228 Mean Platelet Volume 8.3 Neutrophils (%) (Auto) 71.4 Lymphocytes (%) (Auto) 16.7 L Monocytes (%) (Auto) 9.6 Eosinophils (%) (Auto) 1.8 Basophils (%) (Auto) 0.5 Neutrophils # (Auto) 6.7 Lymphocytes # (Auto) 1.6 Monocytes # (Auto) 0.9 Eosinophils # (Auto) 0.2 Basophils # (Auto) 0.0 CBC Comment Sodium Level 144 Potassium Level 4.1 Chloride Level 108 H Carbon Dioxide Level 25.6 Anion Gap 10 Blood Urea Nitrogen 25 H Creatinine 1.52 H Estimated GFR/1.73 m2 44 BUN/Creatinine Ratio 16.4 Glucose Level 150 H Hemoglobin A1c 6.4 H Calcium Level 8.8 Total Creatine Kinase 43 Troponin I High Sensitivity 12 14 Albumin 3.3 L Chemistry Comments Troponin I High Sens Percent Delta 16 Troponin I Hi Sens Absolute Change 2 Urine Specimen Description Cln catch midstream Urine Color Straw Urine Clarity Clear Urine pH 6.0 Urine Specific [place] <=1.005 Urine Protein Negative Urine Glucose (UA) Negative Urine Ketones Negative Urine Occult Blood Trace-intact Urine Nitrite Negative Urine Bilirubin Negative Urine Urobilinogen 0.2 Urine Leukocyte Esterase Small H Urine RBC 0-2 Urine WBC 20-30 H Urine Squamous Epithelial Cells Few Urine Bacteria Few Urine Culture Indicated Indicated Volume Urine Centrifuged 10 ml Urine Comment Microbiology Date/Time Source Procedure Growth Status 11/18/24 18:28 Urine Clean Catch Midstream Urine Culture - Preliminary Culture received. Resulted EKG/XRAY/CT/US/VASC/MRI EKG : Additional Comment EKG at 14:46 interpreted by myself as: Sinus rhythm at a rate of 60, left axis deviation, no ST segment elevation or depression Chest X-Ray : Additional Comments CHEST RADIOGRAPH Indication: CP Technique: Single frontal view of the chest was obtained COMPARISON: DI CHEST,SINGLE VIEW on DOS: 06/22/23, DI CHEST,SINGLE VIEW on DOS: 06/20/23, CHEST,SINGLE VIEW on DOS: 12/27/22, CHEST,SINGLE VIEW on DOS: 03/24/22 FINDINGS: Lines and Tubes: None Lungs: Clear Pleura: No effusion. No pneumothorax. Cardiomediastinal contours: Unremarkable Bones: Unremarkable IMPRESSION: No acute disease. Electronically Signed by:RAUL DIAZ MD Date & Time: 11/18/241558 Dictated by: RAUL DIAZ MD Dictation date and time: 11/18/241558 I have reviewed and agree with the radiology report. I have reviewed and interpreted the imaging as: No focal consolidation or pneumothorax CT #1: Impression CLINICAL INFORMATION: Fall injury. TECHNIQUE: Axial imaging was obtained through the brain without contrast. Coronal and sagittal reformatted images were obtained, reviewed, and stored. Images were reviewed in brain and bone windows. All CT scans at this medical facility are performed using dose modulation techniques as appropriate to a performed exam including the following: Automated exposure control was utilized; adjustment of the MA and/or KV according to patient size; and use of iterative reconstruction technique. CTDIvol = 35.96 mGy DLP = 668.19 mGy-cm COMPARISON: CT HEAD on DOS: 03/24/22 FINDINGS: There is no acute intracranial hemorrhage. No mass effect or midline shift. Scattered areas of hypoattenuation are seen in the periventricular and subcortical white matter, which are nonspecific but most likely sequelae of small vessel ischemic disease. Atrophic changes with dilation of the ventricles and widening of the sulci. Basal cisterns are patent. The calvarium is unremarkable. Paranasal sinuses and mastoid air cells are clear. IMPRESSION: 1. No CT evidence of acute intracranial abnormality. 2. Nonacute findings as described above. Electronically Signed by:HOANG JENSEN DO Date & Time: 11/18/24 1602 Dictated by: HOANG JENSEN DO Dictation date and time: 11/18/24 1602 I have reviewed and agree with the radiology report. I have reviewed and interpreted the imaging as: No intracranial hemorrhage CT #2: Impression Exam: CT CERVICAL SPINE Indication: GL Fall With Back Pain Technique: CT axial images of the cervical spine are obtained without contrast. Coronal and sagittal reformats were obtained. Radiation Dose Information: CTDI volume is 30 mGy. Dose-length product is 591 mGy*cm Comparison: CT CERVICAL SPINE on DOS: 12/25/22 FINDINGS: The cervical vertebral body heights are maintained. Straightening the normal cervical spine curvature. Prominent anterior os osteophytes/ankylosis of the cervical vertebral bodies H. There is moderate to advanced multilevel disc space narrowing. No prevertebral edema. Facet articulations demonstrate moderate facet hypertrophic changes. Posterior paraspinal mineralization. The atlantooccipital, atlantoaxial articulations are intact. Carotid atherosclerotic disease. IMPRESSION: Moderate to advanced cervical degenerative disc disease. Cervical anterior osteophytosis and ankylosis. Electronically Signed by:BRANDI PARRA MD Date & Time: 11/18/24 1626 Dictated by: BRANDI PARRA MD Dictation date and time: 11/18/24 1626 I have reviewed and agree with the radiology report. I have reviewed and interpreted the imaging as: No vertebral fractures observed CT #3: Impression CT CT T L SPINE Indication: GL Fall With Back Pain EXAM DATE: 11/18/2024 03:44 PM COMPARISON: CT T L SPINE on DOS: 12/25/22 TECHNIQUE: CT of the thoracic and lumbar without intravenous contrast. RADIATION DOSE: CTDIvol: 18.4 mGy, DLP: 1042 mGy*cm FINDINGS: The thoracic and lumbar vertebral body heights are maintained. There is anterior Thoracic ankylosis which can be seen with ankylosing spondylitis. Moderate advanced multilevel disc space narrowing. Thoracic kyphotic deformity. No evidence for vertebral body subluxation. Moderate bilateral sacral ileitis with ankle glottic changes. changes. There is aortic atherosclerotic disease. Nonobstructing right renal calculus measuring 8 mm. There is a mid right ureteral calculus measuring 3 mm. Mild right hydroureteronephrosis. There is also mild left hydroureteronephrosis. IMPRESSION: Moderate to advanced thoracolumbar degenerative disc disease. Ankylosis of the thoracolumbar spine which can be seen with ankylosing spondylitis. Mild bilateral hydroureteronephrosis. Mid right ureteral calculus measuring 3 mm. This appears to be nonobstructing. Nonobstructing right renal calculus measuring 8 mm. Electronically Signed by:BRANDI PARRA MD Date & Time: 11/18/241823 Dictated by: BRANDI PARRA MD Dictation date and time: 11/18/241823 I have reviewed and agree with the radiology report. Medical Decision Making Findings This 84-year-old male presented by EMS from an assisted living facility after apparent syncopal episode while standing up to walk to the bathroom, patient reports that he walked several steps before losing consciousness waking up on the ground very spent much of the night. Physical exam did not demonstrate skin breakdown or visible injury, x-rays did not demonstrate evidence of intracranial hemorrhage, spinal fracture, or traumatic misalignment of the spine. Reporting generalized weakness and not focal weakness meeting me to believe that that has weakness preceded his fall in the fall as not the cause of his weakness. Labs did demonstrate anemia however this appears to be chronic and is not to a level to require transfusion. Urinalysis did demonstrate evidence of urinary tract infection which may be related to patient's increased weakness. Patient would benefit from inpatient admission for further evaluation of generalized weakness, syncopal episode, and for physical therapy evaluation. Hospitalist team contacted and kindly accepts patient for admission. Differential Dx:Considerations: Include: Closed head injury, Fracture(s), Intraabdominal injury, Spine injury, Abrasion(s), Contusion(s), Hematoma(s) Departure Disposition: ADMITTED INPATIENT Admitted to Inpatient Unit: to hospitalist Impression: Primary Impression: UTI (urinary tract infection) Qualified Codes: N30.00 - Acute cystitis without hematuria Additional Impressions: Fall Qualified Codes: W19.XXXA - Unspecified fall, initial encounter Syncope Qualified Codes: R55 - Syncope and collapse Weakness generalized Condition: Guarded Referrals: NO PRIMARY CARE PROVIDER (PCP) Education Educated: Family Educated regarding: diagnosis, treatment Signature Scribe Signature: No scribe Attestation: The note accurately reflects work and decisions made by me.LASHON Méndez 11/19/24 00:34 LESLIE CHESTER Nov 18, 2024 14:45
--- NOTE | 2024-11-18 14:49 | ELECTROCARDIOGRAPH REPORT ---
[facility] Test Date: 2024-11-18 Test Time: 14:46:48 Pat Name: BRET LEAHY [id number] Room: Gender: M Sausage Inspector: : 1940 Requested By: LESLIE CHESTER Order Number: [id number] Reading MD: Measurements Intervals [place] Rate: 60 P: 0 MI: 0 QRS: -6 QRSD: 99 T: 53 QT: 446 QTc: 446 Interpretive Statements Junctional rhythm Ventricular premature complex Low voltage, extremity leads Baseline wander in lead(s) V1,V2 Please click the below link to view image of tracing.
[2024-11-18 14:59] LABS: BASOPHILS % (AUTO) 0.5 % (0-1); EOSINOPHILS # (AUTO) 0.2 X10'3 (0-0.9); EOSINOPHILS % (AUTO) 1.8 % (0-6); HEMOGLOBIN 10.7 g/dl (14.0-17.9); LYMPHOCYTES # (AUTO) 1.6 X10'3 (1.1-4.8); LYMPHOCYTES % (AUTO) 16.7 % (21-51); MEAN CORPUSCULAR HEMOGLOBIN 30.5 PG (27.0-31.0); MEAN CORPUSCULAR HGB CONC 33.4 g/dL (33.0-36.5); MEAN CORPUSCULAR VOLUME 91.3 FL (78-98); MEAN PLATELET VOLUME 8.3 FL (7.4-10.4); MONOCYTES # (AUTO) 0.9 X10'3 (0-0.9); MONOCYTES % (AUTO) 9.6 % (2-12); NEUTROPHILS # (AUTO) 6.7 X10'3 (1.8-7.7); NEUTROPHILS % (AUTO) 71.4 % (42-75); PLATELET COUNT 228 X10'3 (140-440); RED CELL DISTRIBUTION WIDTH 13.5 % (11.5-14.5); WHITE BLOOD COUNT 9.4 X10'3 (4.5-11.0)
[2024-11-18 15:07] LABS: ALBUMIN 3.3 G/DL (3.4-5.0); ANION GAP 10 (8-16); BLOOD UREA NITROGEN 25 MG/DL (7-18); BUN/CREATININE RATIO 16.4 (10.0-20.0); CALCIUM 8.8 MG/DL (8.5-10.1); CHLORIDE 108 MMOL/L (99-107); CREATINE KINASE 43 U/L (39-308); CREATININE 1.52 MG/DL (0.60-1.10); GLUCOSE 150 MG/DL (70-104); POTASSIUM 4.1 MMOL/L (3.5-5.1); SODIUM 144 MMOL/L (135-145); TOTAL CARBON DIOXIDE 25.6 MMOL/L (24-32); eCRCL 36 ML/MIN; eGFR 44 ML/MIN
--- NOTE | 2024-11-18 16:02 | RADIOLOGY REPORT ---
CHEST RADIOGRAPH Indication: CP Technique: Single frontal view of the chest was obtained COMPARISON: DI CHEST,SINGLE VIEW on DOS: 06/22/23, DI CHEST,SINGLE VIEW on DOS: 06/20/23, CHEST,SINGLE VIEW on DOS: 12/27/22, CHEST,SINGLE VIEW on DOS: 03/24/22 FINDINGS: Lines and Tubes: None Lungs: Clear Pleura: No effusion. No pneumothorax. Cardiomediastinal contours: Unremarkable Bones: Unremarkable IMPRESSION: No acute disease.
--- NOTE | 2024-11-18 16:05 | RADIOLOGY REPORT ---
CLINICAL INFORMATION: Fall injury. TECHNIQUE: Axial imaging was obtained through the brain without contrast. Coronal and sagittal reform atted images were obtained, reviewed, and stored. Images were reviewed in brain and bone windows. Al l CT scans at this medical facility are performed using dose modulation techniques as appropriate to a performed exam including the following: Automated exposure control was utilized; adjustment of the MA and/or KV according to patient size; and use of iterative reconstruction technique. CTDIvol = 35.9 6 mGy DLP = 668.19 mGy-cm COMPARISON: CT HEAD on DOS: 03/24/22 FINDINGS: There is no acute intracranial hemorrhage. No mass effect or midline shift. Scattered areas of hypoattenuation are seen in the periventricular and subcortical white matter, which are nonspecif ic but most likely sequelae of small vessel ischemic disease. Atrophic changes with dilation of the v entricles and widening of the sulci. Basal cisterns are patent. The calvarium is unremarkable. Parana fang sinuses and mastoid air cells are clear. IMPRESSION: 1. No CT evidence of acute intracranial abnormality. 2. Nonacute findings as described above.
--- NOTE | 2024-11-18 16:28 | RADIOLOGY REPORT ---
Indication: GL Fall With Back Pain Technique: CT axial images of the cervical spine are obtained without contrast. Coronal and sagittal reformats were obtained. Radiation Dose Information: CTDI volume is 30 mGy. Dose-length product is 591 mGy*cm Comparison: CT CERVICAL SPINE on DOS: 12/25/22 FINDINGS: The cervical vertebral body heights are maintained. Straightening the normal cervical spine curvatur e. Prominent anterior os osteophytes/ankylosis of the cervical vertebral bodies H. There is moderate to advanced multilevel disc space narrowing. No prevertebral edema. Facet articulations demonstrate moderate facet hypertrophic changes. Posterior paraspinal mineralization. The atlantooccipital, maureen antoaxial articulations are intact. Carotid atherosclerotic disease. IMPRESSION: Moderate to advanced cervical degenerative disc disease. Cervical anterior osteophytosis and ankylos is.
[2024-11-18] MEDS: normal saline 1000ML IV soln IVB ONE (17:26)
[2024-11-18 18:22] LABS: BILIRUBIN,URINE NEGATIVE (Neg); CLARITY,URINE CLEAR (Clear); COLOR,URINE STRAW (Yellow); GLUCOSE, URINE NEGATIVE (Neg); KETONES,URINE NEGATIVE (Neg); LEUKOCYTE ESTERASE ,URINE SMALL (Neg); NITRITES, URINE NEGATIVE (Neg); OCCULT BLOOD,URINE TRACE-INTACT (Neg); PROTEIN,URINE NEGATIVE (Neg); UROBILINOGEN,URINE 0.2 E.U/dL (0.2-1.0)
[2024-11-18 18:26] LABS: UA COLLECTION TYPE CLN CATCH MIDSTREAM
--- NOTE | 2024-11-18 18:26 | RADIOLOGY REPORT ---
CT CT T L SPINE Indication: GL Fall With Back Pain EXAM DATE: 11/18/2024 03:44 PM COMPARISON: CT T L SPINE on DOS: 12/25/22 TECHNIQUE: CT of the thoracic and lumbar without intravenous contrast. RADIATION DOSE: CTDIvol: 18.4 mGy, DLP: 1042 mGy*cm FINDINGS: The thoracic and lumbar vertebral body heights are maintained. There is anterior Thoracic ankylosis which can be seen with ankylosing spondylitis. Moderate advanced multilevel disc space narrowing. T horacic kyphotic deformity. No evidence for vertebral body subluxation. Moderate bilateral sacral ile itis with ankle glottic changes. changes. There is aortic atherosclerotic disease. Nonobstructing right renal calculus measuring 8 mm. There i s a mid right ureteral calculus measuring 3 mm. Mild right hydroureteronephrosis. There is also mild left hydroureteronephrosis. IMPRESSION: Moderate to advanced thoracolumbar degenerative disc disease. Ankylosis of the thoracolumbar spine which can be seen with ankylosing spondylitis. Mild bilateral hydroureteronephrosis. Mid right ureteral calculus measuring 3 mm. This appears to be nonobstructing. Nonobstructing right renal calculus measuring 8 mm.
[2024-11-18 18:27] LABS: RBC,URINE 0-2 /HPF (0-2); WBC,URINE 20-30 /HPF (0-4)
[2024-11-18 18:28] LABS: BACTERIA,URINE FEW /HPF (Neg); SQUAMOUS EPITHELIAL CELL,UR FEW /LPF (FEW)
[2024-11-18] MEDS: HYDROcodone/acetaminophen 5mg/325mg tablet PO ONE (19:10)
[2024-11-18] MEDS ORDERED: potassium Cl 20 mEq SR tablet PO PRN ×2 (19:25)
[2024-11-18] MEDS ORDERED: potassium Cl 40MEQ/1/2NS 520ml 520 ML IV PRN (19:25)
[2024-11-18] MEDS ORDERED: magnesium sulf-water 4G/100mL 100 ML IV PRN (19:25)
[2024-11-18] MEDS ORDERED: acetaminophen 325mg tablet PO PRN (19:25)
[2024-11-18] MEDS ORDERED: mag hydrox/Alum hydrox/simeth 30ml oral suspension PO PRN (19:25)
[2024-11-18] MEDS ORDERED: magnesium sulf-water 2g/50mL 50 ML IV PRN (19:25)
[2024-11-18 19:48] LABS: HEMOGLOBIN A1C 6.4 % (4.5-6.2)
[2024-11-18] MEDS: cefuroxime axetil 250mg tablet PO ONE (19:58)
[2024-11-18] MEDS: K and/or MAG REPLACEMENT MC SCH (20:00)
[2024-11-18] MEDS: docusate sod 100mg capsule PO SCH (20:00)
[2024-11-18] MEDS ORDERED: ASPI-1071 PO (20:03)
[2024-11-18] MEDS ORDERED: ACET-1017 PO (20:03)
[2024-11-18] MEDS ORDERED: CYAN-104 PO (20:09)
[2024-11-18] MEDS: PERFLUTREN PROTEIN-A MICROSPHR (Optison) 0.22 MG/ML 3ML VIAL IV ONE (20:14)
[2024-11-18] MEDS: normal saline 1000ml 1,000 ML IV SCH (20:36)
[2024-11-18] MEDS: ondansetron/PF 4mg/2ml inj IV PRN (20:36)
[2024-11-18] MEDS: morphine 2 MG/ML inj. syringe IV PRN (20:36)
[2024-11-18] MEDS ORDERED: glucagon, human recombinant 1mg kit SUBCUT PRN (21:10)
[2024-11-18] MEDS ORDERED: DEXTROSE 15 GM of carb/4 tabs (each vial/BOTTLE has 4 tablets) PO PRN ×2 (21:10)
[2024-11-18] MEDS ORDERED: dextrose 50%-water 50ml dispensing syringe IV PRN ×2 (21:10)
--- NOTE | 2024-11-18 21:13 | HISTORY AND PHYSICAL-Residence ---
History & Physical Providers to CC Resident Creating Document: BRIAN ROSEN, RES CC: ANGIE DAVIS MD ~ History of Present Illness Primary Medical Doctor: [facility] Reason for Admit\Complaint: FALL THIS MORNING History of Present Illness A 70-year-old male with past medical history of diabetes type 2, multiple falls was brought in by EMS after he sustained a fall this morning. Patient states that he was trying to go to the restroom when his legs felt weak and he fell down, when he tried to get up he fell down again. He did not hit his head or fall backwards but he just landed straight on the pelvis. Patient denies dizziness, chest pain, shortness of breath, palpitations prior to the episode. Patient denies loss of consciousness, confusion or involuntary bladder bowel movements after the fall. Patient endorses burning sensation, fever but denies abdominal pain, nausea, vomitings, chills. Patient had multiple similar episodes in the past but does not know the reason for his prior falls. Allergies: Coded Allergies: No Known Allergies (Unverified , 06/20/23) Home Medications Home Medications Active Aspirin EC (Aspirin) 81 Mg Tablet.dr 1 Tab PO DAILY 30 Days Proair Respiclick (Albuterol Sulfate) 90 Mcg Aer.pow.ba 2 Puffs INH Q4HPRN PRN Dexamethasone 6 Mg Tablet 1 Tab PO BID 7 Days Cefdinir* (Cefdinir) 300 Mg Capsule 1 Cap PO Q12H 5 Days [tamsulosin capsule] 0.4 MG Cap 0.4 Mg PO HS Reported Vitamin B-12 (Cyanocobalamin) 1,000 Mcg Tablet 0.5 Tab PO DAILY 30 Days Atorvastatin Calcium 80 Mg Tablet 1 Tab PO DAILY 30 Days Acetaminophen 500 Mg Tablet 1 Tab PO Q6H PRN PRN 15 Days Ecotrin* (Aspirin) 81 Mg Tablet.dr 1 Tab PO DAILY 30 Days Slow-Mag (Magnesium Chloride) 71.5 Mg Tablet.dr 1 Tab PO Q12H 30 Days Lantus* (Insulin Glargine) 100 Unit/1 Ml Vial 10 Units SUBCUT HS 30 Days Metformin ER* (Metformin HCl) 500 Mg Tab.sr.24h 2 Tab PO Q12H 30 Days Metoprolol Succinate 25 Mg Tab.sr.24h 1 Tab PO HS 30 Days PT UNSURE (HX OF DEMENTIA PER RN), MED REC BASED ON RECENT PR LIST Atorvastatin Calcium 80 Mg Tablet 1 Tab PO DAILY 30 Days PT UNSURE (HX OF DEMENTIA PER RN), MED REC BASED ON RECENT VA LIST Alogliptin (Alogliptin Benzoate) 12.5 Mg Tablet 1 Tab PO DAILY PT UNSURE (HX OF DEMENTIA PER RN), MED REC BASED ON RECENT VA LIST Daily Vitamin Formula-Minerals (Multivitamin with Minerals) 1 Each Tablet 1 Tab PO DAILY 30 Days PT UNSURE (HX OF DEMENTIA PER RN), MED REC BASED ON RECENT VA LIST Zetia (Ezetimibe) 10 Mg Tablet 1 Tab PO DAILY 30 Days PT UNSURE (HX OF DEMENTIA PER RN), MED REC BASED ON RECENT VA LIST Past Medical History Past Medical History Multiple falls Diabetes type 2 Per previous records: HLD HTN COPD Nephrolithiasis Chronic back pain AFib Peripheral neuropathy Past Surgical History Surgical History Comment Ureteral stenting per previous records Past Social History Social History Comment Patient lives at assisted living Goes to [facility] care 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 Does not smoke cigarettes, consumes beer occasionally, does not consume marijuana or illicit drugs Smoking: Non-Smoker Alcohol Use: None Drug Use: None Lives In: Home ROS ROS All other systems reviewed in full and negative except for pertinent positives mentioned in the HPI Exam Vitals: Vital Signs Date Time Temp Pulse Resp B/P (MAP) Pulse Ox O2 Delivery O2 Flow Rate FiO2 11/18/24 21:01 98.1 63 16 152/64 (93) 96 0 General: General: Alert, awake, oriented, not in acute distress HEENT: PERRLA, no icterus, pallor, lymphadenopathy, carotid bruit, loss of few molars and premolars on the lower and upper dental arches Respiratory system: Bilateral vesicular breath sounds heard, no adventitious breath sounds CVS: S1-S2 heard, no murmurs/rubs/gallop GI: Soft, nontender, no organomegaly, no guarding/rigidity, bowel sounds present Neuro: No sensory deficits, power in bilateral upper and lower extremities 3/5, gait could not be examined, no rigidity, no tremors, no deviation of the mouth, coordination intact. Extremities: No edema cyanosis clubbing/deformities Skin: Warm and dry Diagnostic Data Last Recorded Lab Results: 11/19/246 11/19/246 Advance Care Planning Advanced Care plannin - 30 Minutes (I spent 20 minutes discussing various resuscitative measures and the patient decided to be full code) Additional Plan Assessment: An 84-year-old male with past medical history of diabetes mellitus type 2 and multiple falls presented to the ED after sustaining a fall this morning at an assisted living. Patient is admitted for the evaluation management of mechanical fall and evaluation of syncope. Plan: Mechanical fall Syncope, under evaluation CT head: No CT evidence of acute intracranial abnormality. Cervical spine CT: Moderate to advanced cervical degenerative disc disease. Cervical anterior osteophytosis and ankylosis. Thoracic/lumbar spine CT: Moderate to advanced thoracolumbar degenerative disc disease. Ankylosis of the thoracolumbar spine which can be seen with ankylosing spondylitis. Follow up with pelvic x-ray, orthostatic vitals Fall probably secondary to generalized deconditioning and/or dehydration leading to syncope IV fluids at 100 cc/hour Continue to monitor telemetry History of multiple falls Parkinsonism, rule out Patient does not have any clinical signs and symptoms of parkinsonism like bradykinesia, resting tremors, rigidity With significant history of multiple falls patient might benefit from outpatient evaluation of parkinsonism which is extremely less likely Prerenal DEWAYNE probably secondary to renal tubular stasis Elevated BUN and creatinine IV fluids at 100 cc/hour Continue to monitor BMP UTI, failed outpatient therapy Nephrolithiasis Mild bilateral hydroureteronephrosis. Mid right ureteral calculus measuring 3 mm. This appears to be nonobstructing. Nonobstructing right renal calculus measuring 8 mm. Urinalysis positive for leukocyte esterase and WBC Follow up with urine culture and outpatient/inpatient stone analysis Started on IV Rocephin 1 g Patient received samples but does not remember the antibiotic Tamsulosin 0.4 mg p.o. HS Urology consult in am Diabetes mellitus type 2 A1c: 6.4 On low-dose sliding scale insulin Hyper/hypoglycemia protocol HTN Start on home meds after reconciliation Atrial fibrillation, rate controlled Continue to monitor telemetry and started on meds after medical reconciliation HLD Follow up with lipid panel Meds after reconciliation COPD, not in acute exacerbation DuoNeb q.4 p.r.n. Peripheral neuropathy Med rec pending Follow up with urine culture, echo and pelvic/hip x-ray Code status: Full code Diet: 75 g carb controlled DVT prophylaxis: SCD Disposition: Admit to ortho, follow up with hip/pelvic yesterday, urine culture and echo Brian Rosen MD Internal Medicine, PGY 1 Date of Service: Nov 18, 2024 Billing Provider: ANGIE DAVIS MD Common Visit Codes: [id number] INP/OBS CARE (HIGH) Assessment/Plan Assessment evaluated the patient with the help of residents. Discussed the case with them. Reviewed notes by agree with his assessments and plans. I also reviewed the records including labs radiology and notes from other providers. No additional points at this time BRIAN ROSEN, RES Nov 18, 2024 21:13 ANGIE DAVIS MD Nov 19, 2024 06:35
[2024-11-18] MEDS ORDERED: ipratropium/albuterol 3ml nebule NEB PRN (21:30)
[2024-11-18] MEDS ORDERED: POLY500P24 (21:31)
[2024-11-18] MEDS ORDERED: DICL100G31 TOP (21:31)
[2024-11-18] MEDS ORDERED: METO50TA7 PO (21:31)
[2024-11-18] MEDS ORDERED: DONE-53 PO (21:31)
[2024-11-18] MEDS ORDERED: MECL-231 PO (21:31)
[2024-11-18] MEDS ORDERED: LIDO1ADH67 TOP (21:31)
[2024-11-18] MEDS ORDERED: METF-436 PO (21:31)
[2024-11-18] MEDS ORDERED: TAMS-55 PO (21:31)
[2024-11-18 21:45] VITALS: BP 140/51; PULSE 66; RESP 17; TEMP 97.5; O2SAT 95
--- NOTE | 2024-11-18 22:17 | RADIOLOGY REPORT ---
CLINICAL INDICATION: FALL TECHNIQUE: DI HIP,BI,CMPLT(AP PELVIS) Comparison: None FINDINGS/IMPRESSION: : There is no evidence of acute fracture or dislocation. 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 Moderate degenerative changes are present w ithin the lower lumbar spine and lumbosacral junction. Soft tissues are unremarkable.
[2024-11-18 22:50] VITALS: PULSE 70; RESP 20; O2SAT 94
[2024-11-18] MEDS: tamsulosin 0.4mg capsule PO SCH (23:20)
[2024-11-19 04:47] LABS: BASOPHILS # (AUTO) 0.1 X10'3 (0-0.2); BASOPHILS % (AUTO) 0.6 % (0-1); EOSINOPHILS # (AUTO) 0.3 X10'3 (0-0.9); EOSINOPHILS % (AUTO) 3.7 % (0-6); HEMATOCRIT 28.9 % (42.0-52.0); HEMOGLOBIN 9.8 g/dl (14.0-17.9); LYMPHOCYTES # (AUTO) 1.8 X10'3 (1.1-4.8); LYMPHOCYTES % (AUTO) 19.1 % (21-51); MEAN CORPUSCULAR HEMOGLOBIN 31.2 PG (27.0-31.0); MEAN CORPUSCULAR HGB CONC 33.9 g/dL (33.0-36.5); MEAN CORPUSCULAR VOLUME 91.9 FL (78-98); MEAN PLATELET VOLUME 8.2 FL (7.4-10.4); MONOCYTES % (AUTO) 10.6 % (2-12); NEUTROPHILS # (AUTO) 6.3 X10'3 (1.8-7.7); PLATELET COUNT 210 X10'3 (140-440); RED BLOOD COUNT 3.15 X10'6 (4.70-6.10); RED CELL DISTRIBUTION WIDTH 13.7 % (11.5-14.5); WHITE BLOOD COUNT 9.5 X10'3 (4.5-11.0)
[2024-11-19 05:15] LABS: ALBUMIN 2.9 G/DL (3.4-5.0); ANION GAP 9 (8-16); BLOOD UREA NITROGEN 20 MG/DL (7-18); BUN/CREATININE RATIO 16.3 (10.0-20.0); CALCIUM 8.1 MG/DL (8.5-10.1); CHLORIDE 110 MMOL/L (99-107); CHOL/HDL RATIO 1.9 (0.00-4.99); CHOLESTEROL 96 MG/DL (0-200); CREATININE 1.23 MG/DL (0.60-1.10); GLUCOSE 104 MG/DL (70-104); HDL CHOLESTEROL 51 MG/DL (35-60); LDL CHOLESTEROL 36 MG/DL (50-100); MAGNESIUM 1.3 MG/DL (1.5-2.4); POTASSIUM 3.7 MMOL/L (3.5-5.1); SODIUM 144 MMOL/L (135-145); TOTAL CARBON DIOXIDE 25.1 MMOL/L (24-32); TRIGLYCERIDES 57 MG/DL (20-135); eCRCL 45 ML/MIN; eGFR 56 ML/MIN
[2024-11-19] MEDS: INSULIN LISPRO 100 UNIT/ML INSULN.PEN MULTI-DOSE SQ SCH (07:00)
[2024-11-19 07:39] VITALS: BP 105/51; PULSE 62; RESP 16; TEMP 97.1; O2SAT 98
[2024-11-19 08:00] VITALS: BP 110/49; PULSE 78
[2024-11-19 08:12] VITALS: PULSE 66; RESP 16; O2SAT 93
[2024-11-19] MEDS: CefTRIAXone/D5W-Rocephin 1gm 50 ML IV SCH (08:48)
[2024-11-19 11:00] VITALS: BP 139/75; PULSE 75; RESP 19; TEMP 97.3; O2SAT 95
[2024-11-19 18:00] VITALS: BP 138/70; PULSE 89; RESP 19; TEMP 97.8; O2SAT 96
--- NOTE | 2024-11-19 18:32 | CARDIOLOGY REPORT ---
APPROVED REPORT EXAM: Limited 2D and color flow Echocardiogram. Patient Location: 4022 A Heart Rate: 60's bpm Rhythm: SINUSs Indications CONGESTIVE HEART FAILURE HYPERTENSION ATRIAL FIBRILLATION Car Chaser: NONE Previous echo: NONE Aortic Valve AoV Peak Cristóbal. 135.3 cm/s AoV VTI 25.0 cm AO Peak GR. 7.3 mmHg AO Mean GR. 3 mmHg LVOT VTI 24.01 cm LVOT Peak Cristóbal. 105.7 cm/s Mitral Valve MV E Velocity 61.2 cm/s MV Peak Gr. 2 mmHg MV DECEL TIME 280 ms MV A Velocity 67.2 cm/s MV PHT 68 ms E/A Ratio 0.9 MVA (PHT) 3.24 cm2 MV VMax63.3 cm/s Tricuspid Valve TR P. Velocity 207 cm/s RAP ESTIMATE 10 mmHg TR Peak Gr. 17 mmHg RVSP 27 mmHg LEFT VENTRICLE Normal appearing LV size and wall thickness. Overall systolic function is normal. LVEF is 60-65%. RIGHT VENTRICLE RV appears normal in size and function. RVSP is estimated at 27 mmHg. ATRIA The left atrium size appears normal. AORTIC VALVE Trileaflet AV appears mildly sclerotic without stenosis. No insufficiency. MITRAL VALVE Mild MV annular calcification without stenosis. Trace regurgitation. TRICUSPID VALVE TV appears structurally normal with trace regurgitation. PULMONIC VALVE Pulmonic valve is not well visualized. GREAT VESSELS IVC is not well visualized. PERICARDIUM Normal pericardium. No effusion. Other Information Study Quality: Poor due to poor imaging windows Conclusion Normal appearing LV size and wall thickness. Overall systolic function is normal. LVEF is 60-65%. RV appears normal in size and function. RVSP is estimated at 27 mmHg. The left atrium size appears normal. Trileaflet AV appears mildly sclerotic without stenosis. No insufficiency. Mild MV annular calcification without stenosis. Trace regurgitation. TV appears structurally normal with trace regurgitation. Normal pericardium. No effusion.
[2024-11-19 19:51] VITALS: PULSE 67; RESP 16; O2SAT 94
--- NOTE | 2024-11-19 20:18 | PROGRESS NOTE ---
Daily Progress Note Providers to CC ~ no new complaint today resting comfortably in the bed Central Line/PICC still needed: No Bailey-Non Protocol Bailey Indications Met/Not Met: F/C Indications Not Met Antibiotic Timeout Antibiotic Ordered?: Yes MRSA Education MRSA Education Provided to pt: Yes Subjective As above Objective Vital Signs Date Time Temp Pulse Resp B/P (MAP) Pulse Ox O2 Delivery O2 Flow Rate FiO2 11/19/24 19:51 67 16 94 Room Air* 0 21 11/19/24 18:00 97.8 138/70 (92) Vital signs, stable ,afebrile. Pulse Oximetry reflects adequate oxygenation. General: well developed, well nourished. Awake , alert, and oriented x4, resting comfortably in the bed, in no acute distress . Skin: Warm, dry, no pallor, no rash or petechiae. HEENT: Atraumatic, normocephalic, EOMI, anicteric sclera B; pink conjunctiva; PERRLA, normal oropharynx, moist oral and nasal mucosa. Tympanic membrane , nose , throat clear. Neck: Trachea midline. Supple, full range of motion, no JVD, bruit , hepatojugular reflex , lymphadenopathy or masses, or other lesions Cardiac: Regular rhythm, regular rate no murmurs, rubs, or gallops. Normal S1 and S2, no S3 noticed. PMI is normal. Respiratory: Equal breath sounds bilaterally, no tachypnea; lungs clear to auscultation bilaterally, no wheezing ,rub or rales, or crackles. Chest wall is symmetric and without deformity. No signs of trauma. Chest wall is nontender. No signs of respiratory distress. Resonance is normal upon percussion bilaterally. Gastrointestinal: Abdomen symmetric, non-distended, soft, non-tender, normal bowel sounds x4 quadrant, normoactive, no hepatosplenomegaly , no masses , no bruit, no flank pain bilaterally. No voluntary guarding, rebound, or rigidity. No tenderness to percussion. No pulsatile masses. Equal femoral pulses. No Ruth's sign or McBurney point tenderness. Back; no CVA tenderness bilaterally, no deformities. Neck and back are without deformity as well. No tenderness noted on palpation of the spinous processes. Spinous processes are midline. Cervical, thoracic, and lumbar paraspinal muscles are not tender and are without spasm. : normal external genitalia, without lesions, swelling, masses or tenderness. Musculoskeletal: Extremities, normal range of motion, non-tender, muscle strength 5/5 x 4. Negative Homans signs bilaterally on lower extremity. Distal pulses full symmetrical, no clubbing, cyanosis , edema. Neurological: Speech is clear, alert, and oriented x 4. No motor or sensory deficit, deep tendon reflexes normal, cerebellar intact. Cranial nerves II-XII intact. Psych: Alert and or appropriate, normal affect. Vascular: Good distal pulses, which are equal x4; capillary refill less than 2 seconds. Lymphatic, no lymphadenopathy. Result Diagram: 11/19/2442511/19/24425 Problem\Assessment\Plan Assessment: An 84-year-old male with past medical history of diabetes mellitus type 2 and multiple falls presented to the ED after sustaining a fall this morning at an assisted living. Patient is admitted for the evaluation management of mechanical fall and evaluation of syncope. Plan: Mechanical fall Syncope, under evaluation CT head: No CT evidence of acute intracranial abnormality. Cervical spine CT: Moderate to advanced cervical degenerative disc disease. Cervical anterior osteophytosis and ankylosis. Thoracic/lumbar spine CT: Moderate to advanced thoracolumbar degenerative disc disease. Ankylosis of the thoracolumbar spine which can be seen with ankylosing spondylitis. Follow up with pelvic x-ray, orthostatic vitals Fall probably secondary to generalized deconditioning and/or dehydration leading to syncope IV fluids at 100 cc/hour Continue to monitor telemetry History of multiple falls Parkinsonism, rule out Patient does not have any clinical signs and symptoms of parkinsonism like bradykinesia, resting tremors, rigidity With significant history of multiple falls patient might benefit from outpatient evaluation of parkinsonism which is extremely less likely Prerenal DEWAYNE probably secondary to renal tubular stasis Elevated BUN and creatinine IV fluids at 100 cc/hour Continue to monitor BMP UTI, failed outpatient therapy Nephrolithiasis Mild bilateral hydroureteronephrosis. Mid right ureteral calculus measuring 3 mm. This appears to be nonobstructing. Nonobstructing right renal calculus measuring 8 mm. Urinalysis positive for leukocyte esterase and WBC Follow up with urine culture and outpatient/inpatient stone analysis Started on IV Rocephin 1 g Patient received samples but does not remember the antibiotic Tamsulosin 0.4 mg p.o. HS Urology consult in am Diabetes mellitus type 2 A1c: 6.4 On low-dose sliding scale insulin Hyper/hypoglycemia protocol HTN Start on home meds after reconciliation Atrial fibrillation, rate controlled Continue to monitor telemetry and started on meds after medical reconciliation HLD Follow up with lipid panel Meds after reconciliation COPD, not in acute exacerbation DuoNeb q.4 p.r.n. Peripheral neuropathy Med rec pending Follow up with urine culture, echo and pelvic/hip x-ray Code status: Full code Diet: 75 g carb controlled DVT prophylaxis: SCD Date of Service: Nov 19, 2024 Billing Provider: RHIANNA FAJARDO MD Common Visit Codes: 02897-GPK/OBS SAME DATE (HIGH) RHIANNA FAJARDO MD Nov 19, 2024 20:18
[2024-11-19] MEDS: magnesium Cl slow-release 64mg tablet PO PRN (21:47)
[2024-11-20] VITALS (8 sets, daily range): BP systolic 97–132; BP diastolic 48–74; PULSE 61–80; RESP 15–18; TEMP 97.9–98.1; O2SAT 94–98
[2024-11-20 04:42] LABS: BASOPHILS % (AUTO) 0.5 % (0-1); EOSINOPHILS # (AUTO) 0.3 X10'3 (0-0.9); EOSINOPHILS % (AUTO) 4.3 % (0-6); HEMOGLOBIN 9.8 g/dl (14.0-17.9); LYMPHOCYTES # (AUTO) 1.4 X10'3 (1.1-4.8); LYMPHOCYTES % (AUTO) 18.2 % (21-51); MEAN CORPUSCULAR HGB CONC 33.9 g/dL (33.0-36.5); MEAN CORPUSCULAR VOLUME 91.6 FL (78-98); MEAN PLATELET VOLUME 7.7 FL (7.4-10.4); MONOCYTES # (AUTO) 0.9 X10'3 (0-0.9); MONOCYTES % (AUTO) 10.9 % (2-12); NEUTROPHILS # (AUTO) 5.2 X10'3 (1.8-7.7); NEUTROPHILS % (AUTO) 66.1 % (42-75); PLATELET COUNT 210 X10'3 (140-440); RED BLOOD COUNT 3.17 X10'6 (4.70-6.10); RED CELL DISTRIBUTION WIDTH 13.8 % (11.5-14.5); WHITE BLOOD COUNT 7.9 X10'3 (4.5-11.0)
[2024-11-20 05:04] LABS: ALBUMIN 2.9 G/DL (3.4-5.0); ANION GAP 5 (8-16); BLOOD UREA NITROGEN 20 MG/DL (7-18); CALCIUM 8.6 MG/DL (8.5-10.1); CHLORIDE 109 MMOL/L (99-107); CREATININE 1.11 MG/DL (0.60-1.10); GLUCOSE 125 MG/DL (70-104); MAGNESIUM 1.4 MG/DL (1.5-2.4); POTASSIUM 4.1 MMOL/L (3.5-5.1); SODIUM 142 MMOL/L (135-145); TOTAL CARBON DIOXIDE 28.2 MMOL/L (24-32); eCRCL 49 ML/MIN; eGFR 63 ML/MIN
[2024-11-20] MEDS: HYDROcodone/acetaminophen 5mg/325mg tablet PO PRN (08:18)
[2024-11-20] MEDS: magnesium hydroxide 30ml (MOM) UD suspension PO PRN (16:23)
[2024-11-20] MEDS: phenazopyridine 100mg tablet PO SCH (19:00)
--- NOTE | 2024-11-20 19:59 | PROGRESS NOTE ---
Daily Progress Note Providers to CC ~ no new complaint resting comfortably in the bed Central Line/PICC still needed: No Bailey-Non Protocol Bailey Indications Met/Not Met: F/C Indications Not Met Antibiotic Timeout Antibiotic Ordered?: Yes MRSA Education MRSA Education Provided to pt: Yes Subjective As above Objective Vital Signs Date Time Temp Pulse Resp B/P (MAP) Pulse Ox O2 Delivery O2 Flow Rate FiO2 11/20/24 18:00 98.0 69 16 123/48 (73) 97 Room Air 11/20/24 07:36 0 21 Vital signs, stable ,afebrile. Pulse Oximetry reflects adequate oxygenation. General: well developed, well nourished. Awake , alert, and oriented x4, resting comfortably in the bed, in no acute distress . Skin: Warm, dry, no pallor, no rash or petechiae. HEENT: Atraumatic, normocephalic, EOMI, anicteric sclera B; pink conjunctiva; PERRLA, normal oropharynx, moist oral and nasal mucosa. Tympanic membrane , nose , throat clear. Neck: Trachea midline. Supple, full range of motion, no JVD, bruit , hepatojugular reflex , lymphadenopathy or masses, or other lesions Cardiac: Regular rhythm, regular rate no murmurs, rubs, or gallops. Normal S1 and S2, no S3 noticed. PMI is normal. Respiratory: Equal breath sounds bilaterally, no tachypnea; lungs clear to auscultation bilaterally, no wheezing ,rub or rales, or crackles. Chest wall is symmetric and without deformity. No signs of trauma. Chest wall is nontender. No signs of respiratory distress. Resonance is normal upon percussion bilaterally. Gastrointestinal: Abdomen symmetric, non-distended, soft, non-tender, normal bowel sounds x4 quadrant, normoactive, no hepatosplenomegaly , no masses , no bruit, no flank pain bilaterally. No voluntary guarding, rebound, or rigidity. No tenderness to percussion. No pulsatile masses. Equal femoral pulses. No Ruth's sign or McBurney point tenderness. Back; no CVA tenderness bilaterally, no deformities. Neck and back are without deformity as well. No tenderness noted on palpation of the spinous processes. Spinous processes are midline. Cervical, thoracic, and lumbar paraspinal muscles are not tender and are without spasm. : normal external genitalia, without lesions, swelling, masses or tenderness. Musculoskeletal: Extremities, normal range of motion, non-tender, muscle strength 5/5 x 4. Negative Homans signs bilaterally on lower extremity. Distal pulses full symmetrical, no clubbing, cyanosis , edema. Neurological: Speech is clear, alert, and oriented x 4. No motor or sensory deficit, deep tendon reflexes normal, cerebellar intact. Cranial nerves II-XII intact. Psych: Alert and or appropriate, normal affect. Vascular: Good distal pulses, which are equal x4; capillary refill less than 2 seconds. Lymphatic, no lymphadenopathy. Result Diagram: 11/20/2441811/20/24418 Problem\Assessment\Plan Assessment: An 84-year-old male with past medical history of diabetes mellitus type 2 and multiple falls presented to the ED after sustaining a fall this morning at an assisted living. Patient is admitted for the evaluation management of mechanical fall and evaluation of syncope. Plan: Mechanical fall Syncope, under evaluation CT head: No CT evidence of acute intracranial abnormality. Cervical spine CT: Moderate to advanced cervical degenerative disc disease. Cervical anterior osteophytosis and ankylosis. Thoracic/lumbar spine CT: Moderate to advanced thoracolumbar degenerative disc disease. Ankylosis of the thoracolumbar spine which can be seen with ankylosing spondylitis. Follow up with pelvic x-ray, orthostatic vitals Fall probably secondary to generalized deconditioning and/or dehydration leading to syncope IV fluids at 100 cc/hour Continue to monitor telemetry History of multiple falls Parkinsonism, rule out Patient does not have any clinical signs and symptoms of parkinsonism like bradykinesia, resting tremors, rigidity With significant history of multiple falls patient might benefit from outpatient evaluation of parkinsonism which is extremely less likely Prerenal DEWAYNE probably secondary to renal tubular stasis Elevated BUN and creatinine IV fluids at 100 cc/hour Continue to monitor BMP UTI, failed outpatient therapy Nephrolithiasis Mild bilateral hydroureteronephrosis. Mid right ureteral calculus measuring 3 mm. This appears to be nonobstructing. Nonobstructing right renal calculus measuring 8 mm. Urinalysis positive for leukocyte esterase and WBC Follow up with urine culture and outpatient/inpatient stone analysis Started on IV Rocephin 1 g Patient received samples but does not remember the antibiotic Tamsulosin 0.4 mg p.o. HS Urology consult in am Diabetes mellitus type 2 A1c: 6.4 On low-dose sliding scale insulin Hyper/hypoglycemia protocol HTN Start on home meds after reconciliation Atrial fibrillation, rate controlled Continue to monitor telemetry and started on meds after medical reconciliation HLD Follow up with lipid panel Meds after reconciliation COPD, not in acute exacerbation DuoNeb q.4 p.r.n. Peripheral neuropathy Med rec pending Follow up with urine culture, echo and pelvic/hip x-ray Code status: Full code Diet: 75 g carb controlled DVT prophylaxis: SCD Sepsis Screening Reassessment Date: Nov 20, 2024 Date of Service: Nov 20, 2024 Billing Provider: RHIANNA FAJARDO MD Common Visit Codes: 85842-GCAGAUYIHO INP/OBS CARE(HIGH) RHIANNA FAJARDO MD Nov 20, 2024 19:59
[2024-11-21 05:07] LABS: BASOPHILS # (AUTO) 0.1 X10'3 (0-0.2); BASOPHILS % (AUTO) 1.2 % (0-1); EOSINOPHILS # (AUTO) 0.3 X10'3 (0-0.9); EOSINOPHILS % (AUTO) 3.8 % (0-6); HEMATOCRIT 28.2 % (42.0-52.0); HEMOGLOBIN 9.4 g/dl (14.0-17.9); LYMPHOCYTES # (AUTO) 1.3 X10'3 (1.1-4.8); LYMPHOCYTES % (AUTO) 18.5 % (21-51); MEAN CORPUSCULAR HEMOGLOBIN 30.5 PG (27.0-31.0); MEAN CORPUSCULAR HGB CONC 33.3 g/dL (33.0-36.5); MEAN CORPUSCULAR VOLUME 91.5 FL (78-98); MONOCYTES # (AUTO) 0.8 X10'3 (0-0.9); NEUTROPHILS # (AUTO) 4.7 X10'3 (1.8-7.7); NEUTROPHILS % (AUTO) 65.5 % (42-75); PLATELET COUNT 218 X10'3 (140-440); RED BLOOD COUNT 3.08 X10'6 (4.70-6.10); WHITE BLOOD COUNT 7.3 X10'3 (4.5-11.0)
[2024-11-21 05:34] LABS: ALBUMIN 2.7 G/DL (3.4-5.0); ANION GAP 6 (8-16); BLOOD UREA NITROGEN 18 MG/DL (7-18); BUN/CREATININE RATIO 15.7 (10.0-20.0); CALCIUM 8.2 MG/DL (8.5-10.1); CHLORIDE 110 MMOL/L (99-107); CREATININE 1.15 MG/DL (0.60-1.10); GLUCOSE 126 MG/DL (70-104); MAGNESIUM 1.5 MG/DL (1.5-2.4); SODIUM 143 MMOL/L (135-145); TOTAL CARBON DIOXIDE 27.1 MMOL/L (24-32); eCRCL 48 ML/MIN; eGFR 61 ML/MIN
[2024-11-21 06:00] VITALS: BP 139/60; PULSE 81; RESP 14; TEMP 98.2; O2SAT 94
[2024-11-21 07:50] VITALS: RESP 14; O2SAT 94
[2024-11-21 10:00] VITALS: BP 99/48; PULSE 75; RESP 16; TEMP 97.6; O2SAT 95
[2024-11-21 10:44] VITALS: RESP 15
--- NOTE | 2024-11-21 18:01 | DISCHARGE SUMMARY ---
Discharge Summary Providers to New complaint today asking to be discharged home ~ Discharge Summary Assessment Syncope Mechanical fall ground level secondary to above History of multiple fall Chronic kidney disease Urinary tract infection History nephrolithiasis Diabetes mellitus type 2, peripheral neuropathy Hypertension hyperlipidemia Chronic COPD Admission Diagnosis: SYCOPE Admission Diagnosis Comment: Syncope Mechanical fall ground level secondary to above History of multiple fall Chronic kidney disease Urinary tract infection History nephrolithiasis Diabetes mellitus type 2, peripheral neuropathy Hypertension hyperlipidemia Chronic COPD Hospital Course DATE OF ADMISSION: November 19, 2024 DATE OF DISCHARGE: November 21, 2024 Discharge Diagnosis\Comment: Syncope Mechanical fall ground level secondary to above History of multiple fall Chronic kidney disease Urinary tract infection History nephrolithiasis Diabetes mellitus type 2, peripheral neuropathy Hypertension hyperlipidemia Chronic COPD Operations\Procedures: Non Consultants: Non Complications: Non Condition on DC: Stable Discharge Summary: A 70-year-old male with past medical history of diabetes type 2, multiple falls was brought in by EMS after he sustained a fall this morning. Patient states that he was trying to go to the restroom when his legs felt weak and he fell down, when he tried to get up he fell down again. He did not hit his head or fall backwards but he just landed straight on the pelvis. Patient denies dizziness, chest pain, shortness of breath, palpitations prior to the episode. Patient denies loss of consciousness, confusion or involuntary bladder bowel movements after the fall. Patient endorses burning sensation, fever but denies abdominal pain, nausea, vomitings, chills. Patient had multiple similar episodes in the past but does not know the reason for his prior falls. Admission patient was extensively evaluated and treated, today he has no complaint asking to be discharged home, he will be discharged in stable condition, medication reconciled, recommended to return to emergency department if condition worsens, today on physical exam, Vital signs, stable ,afebrile. Pulse Oximetry reflects adequate oxygenation. General: well developed, well nourished. Awake , alert, and oriented x4, resting comfortably in the bed, in no acute distress . Skin: Warm, dry, no pallor, no rash or petechiae. HEENT: Atraumatic, normocephalic, EOMI, anicteric sclera B; pink conjunctiva; PERRLA, normal oropharynx, moist oral and nasal mucosa. Tympanic membrane , nose , throat clear. Neck: Trachea midline. Supple, full range of motion, no JVD, bruit , hepatojugular reflex , lymphadenopathy or masses, or other lesions Cardiac: Regular rhythm, regular rate no murmurs, rubs, or gallops. Normal S1 and S2, no S3 noticed. PMI is normal. Respiratory: Equal breath sounds bilaterally, no tachypnea; lungs clear to auscultation bilaterally, no wheezing ,rub or rales, or crackles. Chest wall is symmetric and without deformity. No signs of trauma. Chest wall is nontender. No signs of respiratory distress. Resonance is normal upon percussion bilaterally. Gastrointestinal: Abdomen symmetric, non-distended, soft, non-tender, normal bowel sounds x4 quadrant, normoactive, no hepatosplenomegaly , no masses , no bruit, no flank pain bilaterally. No voluntary guarding, rebound, or rigidity. No tenderness to percussion. No pulsatile masses. Equal femoral pulses. No Ruth's sign or McBurney point tenderness. Back; no CVA tenderness bilaterally, no deformities. Neck and back are without deformity as well. No tenderness noted on palpation of the spinous processes. Spinous processes are midline. Cervical, thoracic, and lumbar paraspinal muscles are not tender and are without spasm. : normal external genitalia, without lesions, swelling, masses or tenderness. Musculoskeletal: Extremities, normal range of motion, non-tender, muscle strength 5/5 x 4. Negative Homans signs bilaterally on lower extremity. Distal pulses full symmetrical, no clubbing, cyanosis , edema. Neurological: Speech is clear, alert, and oriented x 4. No motor or sensory deficit, deep tendon reflexes normal, cerebellar intact. Cranial nerves II-XII intact. Psych: Alert and or appropriate, normal affect. Vascular: Good distal pulses, which are equal x4; capillary refill less than 2 seconds. Lymphatic, no lymphadenopathy. *Problems/Diagnosis: (1) Urolithiasis Status: Chronic (2) Syncope Status: Acute Total Time Spent on D/C: > 30 Minutes Date of Service: Nov 21, 2024 Billing Provider: RHIANNA FAJARDO MD Common Visit Codes: 71675-YIY/OBS DISCH DAY >30min Problem Qualifiers (1) Syncope: Qualified Codes: R55 - Syncope and collapse RHIANNA FAAJRDO MD Nov 21, 2024 18:01
== END 2024-11-21 15:13 | disposition home or self-care (01) | DRG 690 ==
LOC: ER 14:12 → ED HOLD 19:21 → EDBEDREQ 19:49 → EDBEDREQTM 19:49 → ORTHO 4S 21:43
PROVIDERS: ADMIT Internal Medicine Critical Care Medicine; ATTEND Family Medicine
DX: N30.00 Acute cystitis without hematuria (principal); N17.9 Acute kidney failure, unspecified; N20.0 Calculus of kidney; I12.9 Hypertensive chronic kidney disease with stage 1 through stage 4 chronic kidney disease, or unspecified chronic kidney disease; E11.22 Type 2 diabetes mellitus with diabetic chronic kidney disease; E11.42 Type 2 diabetes mellitus with diabetic polyneuropathy; I48.91 Unspecified atrial fibrillation; E78.00 Pure hypercholesterolemia, unspecified; J44.9 Chronic obstructive pulmonary disease, unspecified; F03.90 Unspecified dementia, unspecified severity, without behavioral disturbance, psychotic disturbance, mood disturbance, and anxiety; M50.30 Other cervical disc degeneration, unspecified cervical region; N18.9 Chronic kidney disease, unspecified; Z79.899 Other long term (current) drug therapy; Z79.84 Long term (current) use of oral hypoglycemic drugs; Z79.82 Long term (current) use of aspirin
CPT/HCPCS: 36415; 70450; 71045; 72125; 72128; 72131; 73521; 80048; 80061; 81001; 82550; 82948; 83036; 83605; 83735; 84484; 85025; 87040; 87081; 87088; 93005; 93308; 94760; 96361; 96374; 96375; 97110; 97116; 97162; 99285; A6213; A6590; G0378; J0696; J1815; J2270; J2405; J7030

== ENCOUNTER 2025-05-31 22:27 | Emergency (ER) | payer OTHER, MEDICARE ==
[~2025-05-31] VITALS: Ht 185.4 cm; Wt 69.0 kg
[~2025-05-31 22:27] MED LIST changes: +ACET-1017 PO; +ALB0.5UD NEB; -ALBU90AE INH; -ALOG12.52 PO; -ASPI81TA52 PO; -ATOR-2 PO; +ATOR20TA66 PO; -CEFD300C3 PO; -DEXA6TAB PO; +DONE-46 PO; -EZET10TA6 PO; -LANTUS SUBCUT; +LIDO1ADH67 TOP; -MAGN64TA8 PO; +METF-436 PO; -METO-395 PO; -MULT-381 PO; +POLY500P24; +SERT-432 PO; +TAMS-55 PO; +[UNRECOGNIZED DRUG - CODE] TOP; -tamsulosin capsule PO
[2025-05-31 22:37] VITALS: TEMP 99.5
--- NOTE | 2025-05-31 22:39 | Physician Documentation ---
History of Present Illness ~ General Stated Complaint: FALL Time Seen by MD: 22:38 Primary Medical Doctor: [facility] Source: patient, EMS Mode of Arrival: EMS History of Present Illness Initial Comments Patient is an 84-year-old male with past medical history of dementia, peripheral neuropathy, AFib and hypertension brought in by ambulance from [facility] to the ED for evaluation of head trauma secondary to fall prior to arrival. EMS reports that patient was trying to get out of bed when he fell 4 ft from his bed to the floor hitting the right side of his body and forehead. Patient did not have a loss of consciousness. Complains of right hip and right ribcage pain. He was alert and oriented x4 for EMS. No documented anticoagulants on the patient's medication list. Patient denies Eliquis or Xarelto. Patient is on 81 mg of aspirin. Medication Reconciliation Allergies: Coded Allergies: Iodinated Contrast Media (Verified Allergy, Unknown, 05/06/25) rash, pruritis amitriptyline (Verified Allergy, Unknown, 05/06/25) drowsiness gabapentin (Verified Allergy, Unknown, 05/06/25) dizziness, malaise indomethacin (Verified Allergy, Unknown, 05/06/25) gi hemorrhage tramadol (Verified Allergy, Unknown, 05/06/25) hiccups Scheduled Atorvastatin Calcium (LIPITOR tablet), 1 TAB PO DAILY, (Reported) Diclofenac Sodium (Diclofenac Sodium), 1 APPLIC TOP QID, (Reported) Donepezil Hcl (Donepezil Hcl), 1 TAB PO DAILY, (Reported) Lidocaine (Lidocaine Pain Relief), 1 PATCH TOP DAILY, (Reported) Metformin Hcl (Metformin Hcl), 2 TAB PO Q12H, (Reported) Metformin Hcl* (Metformin ER*), 2 TAB PO Q12H, (Reported) Tamsulosin Hcl* (Flomax*), 1 CAP PO HS, (Reported) Scheduled PRN Acetaminophen (Acetaminophen), 1 TAB PO Q6H PRN PRN for pain or fever, (Reported) Albuterol Sulfate Nebs* (Proventil Nebs*), 1 VIAL NEB Q12H PRN for SOB or wheezing, (Reported) Polyethylene Glycol 8000 (Polyethylene Glycol), BID PRN for constipation, (Reported) Sertraline HCl (Sertraline HCl), 1 TAB PO HS PRN for for anxiety/agitation, (Reported) Past Medical History Past Medical History: Dementia, Peripheral Neuropathy, Atrial Fibrillation, High Cholesterol, Hypertension, COPD, Kidney Stones, Diabetes, *MUSCULOSKELETAL*, Chronic Back Pain Past Surgical History: other Other Past Surgical History: Ureteral stenting Patient History: Patient reports no known family medical history. Alcohol Use: None Drug Use: none Lives In: Home Review of Systems All Other Systems at this time: Reviewed and Negative ROS Constitutional: Negative for fever and chills. HENT: Negative for sore throat and rhinorrhea. Eyes: Negative for pain and redness. Respiratory: Negative for cough and SOB. Cardiovascular: Negative for chest pain and palpitations. Gastrointestinal: Negative for nausea and vomiting. . Genitourinary: Negative for dysuria and hematuria. Musculoskeletal: Negative for acute back pain and acute neck pain. Skin: Negative for rash and pruritus. Neurological: Negative for acute numbness or weakness. Physical Exam Physical Exam Physical Exam General: Awake no distress. Verbal Head: Abrasion to forehead no laceration. Eyes: Nl lids Nl conjunctiva. No eye discharge ENT: Mucous membranes Nl. Lips Nl. No lesions Neck: Supple. No JVD. No visible mass Resp: Rate normal. No respiratory distress. No retractions. Normal air flow. No wheezes, rhonchi, or rales. Heart: Regular rhythm. No murmur. No rub Abdomen: Soft. Nontender. No guarding. No rebound Musc/skeletal: No calf or popliteal tenderness. No edema Skin: 4 cm x 4 cm x 3 mm abrasion to forehead. No petechiae. Not diaphoretic Neuro: Alert, oriented x4. Normal speech Progress Progress Note 0047: Spoke to Dr. Cha from [facility]. He requests that Neurosurgery and look at the patient's films and will give us a call back. Results/Orders Results/Orders Orders - ROMMEL PEREZ MD Ct Head (05/31/25 23:20) Ct Cervical Spine (05/31/25 23:30) Ct Chest Abdomen Pelvis (05/31/25 23:25) Chest,Single View (05/31/25 22:54) Monitor (05/31/25 22:54) Saline Lock (05/31/25 22:54) Oxygen (05/31/25 22:54) Electrocardiogram (05/31/25 22:54) Completed Orders - ROMMEL PEREZ MD Ct Head (05/31/25 23:20) Ct Cervical Spine (05/31/25 23:30) Ct Chest Abdomen Pelvis (05/31/25 23:25) Chest,Single View (05/31/25 22:54) Cbc/Diff (05/31/25 22:54) Electrocardiogram (05/31/25 22:54) Hs Troponin I W Calculations (06/01/25 00:54) Iohexol 300mg/Ml 100ml Inj. (Omnipaque-3 (05/31/25 23:13) CMP (05/31/25 23:39) PBNP (05/31/25 23:39) Morphine 4mg/Ml Inj. (Morphine Inj.) (06/01/25 00:55) Morphine 2mg/Ml Inj. (Morphine Inj.) (06/01/25 01:45) Vital Signs 05/31/25 05/31/25 05/31/25 06/01/25 22:37 22:41 23:00 00:07 Temp 99.5 Pulse 94 93 93 Resp 16 16 14 14 B/P (MAP) 133/62 138/58 (84) 124/60 (81) Pulse Ox 96 97 97 06/01/25 06/01/25 02:08 02:09 Pulse 93 Resp 14 18 B/P (MAP) 140/65 (90) Pulse Ox 97 Laboratory Tests Test 05/31/25 22:51 05/31/25 23:58 06/01/25 01:58 White Blood Count 17.5 H Red Blood Count 3.66 L Hemoglobin 11.3 L Hematocrit 34.4 L Mean Corpuscular Volume 94.0 Mean Corpuscular Hemoglobin 31.0 Mean Corpuscular Hemoglobin Concent 32.9 L Red Cell Distribution Width 12.4 Platelet Count 285 Mean Platelet Volume 8.6 Neutrophils (%) (Auto) 90.3 H Lymphocytes (%) (Auto) 2.1 L Monocytes (%) (Auto) 7.4 Eosinophils (%) (Auto) 0 Basophils (%) (Auto) 0.2 Neutrophils # (Auto) 15.8 H Lymphocytes # (Auto) 0.4 L Monocytes # (Auto) 1.3 H Eosinophils # (Auto) 0.0 Basophils # (Auto) 0.0 CBC Comment Chemistry Comments Sodium Level 139 Potassium Level 4.5 Chloride Level 100 Carbon Dioxide Level 27.4 Anion Gap 12 Blood Urea Nitrogen 32 H Creatinine 1.62 H Estimated GFR/1.73 m2 41 BUN/Creatinine Ratio 19.8 Glucose Level 268 H Calcium Level 9.1 Total Bilirubin 0.5 Aspartate Amino Transf (AST/SGOT) 10 Alanine Aminotransferase (ALT/SGPT) 7 L Alkaline Phosphatase 131 H Troponin I High Sensitivity 2 Hour 19 Pro-B-Type Natriuretic Peptide 1038 H Total Protein 7.1 Albumin 3.1 L Globulin 4.0 Albumin/Globulin Ratio 0.8 L Troponin I High Sensitivity 23 EKG/XRAY/CT/US/VASC/MRI Chest X-Ray : Interpreted By: radiologist Views: 1 VIEW Additional Comments EXAM: DI CHEST,SINGLE VIEW TECHNIQUE: Single frontal chest radiograph CLINICAL HISTORY: CP COMPARISON: DI CHEST,SINGLE VIEW on DOS: 11/18/24, DI CHEST,SINGLE VIEW on DOS: 06/22/23, DI CHEST,SINGLE VIEW on DOS: 06/20/23, CHEST,SINGLE VIEW on DOS: , CHEST,SINGLE VIEW on DOS: 03/24/22 FINDINGS/IMPRESSION: Mild elevation of the right hemidiaphragm. The lungs are clear. Unchanged cardiomediastinal silhouette. No pleural effusion or pneumothorax. No acute osseous abnormality. Electronically Signed by:VERÓNICA REEVES MD Date & Time: 06/01/[address] : Interpreted By: radiologist CT: head Impression EXAM: CT CT HEAD INDICATION: FALL ON BLOOD THINNERS TECHNIQUE: CT of the head without intravenous contrast. Radiation Dose Information: CT Dose: CTDI volume is 35.9 mGy. Dose-length product is 713.96 mGy*cm The dose indicators for CT are the volume Computed Tomography (CT) Dose Index (CTDIvol) and the Dose Length Product (DLP), and are measured in units of mGy and mGy-cm, respectively. These indicators are not patient dose, but values generated from the CT scanner acquisition factors. The report includes radiation exposure data for exposures received during this examination. COMPARISON: CT CT HEAD on DOS: 05/05/25, CT CT HEAD on DOS: 11/18/24, CT HEAD on DOS: 03/24/22 FINDINGS: Evaluation is degraded by motion artifact. No acute territorial infarct, intracranial hemorrhage, or mass effect. There are global involutional changes with compensatory prominence of the ventricles and sulci. Patchy periventricular and subcortical white matter hypoattenuation is nonspecific but may be related to small vessel ischemic disease. Bilateral lens implants. The paranasal sinuses and mastoid air cells are clear. The osseous structures are unremarkable. IMPRESSION: 1. No acute territorial infarct, intracranial hemorrhage, or mass effect. 2. Age-related involutional changes. Chronic microvascular changes. Electronically Signed by:VERÓNICA REEVES MD Date & Time: 05/31/25 0479 EXAM: CT CT CHEST ABDOMEN PELVIS W/ IV CONTRAST History: FALL ON BLOOD THINNERS Comparison Study: CT CT CHEST ABDOMEN PELVIS on DOS: 06/20/23, CT ABDOMEN PELVIS on DOS: 07/20/22 TECHNIQUE: A digital director of retail marketing image was obtained. During the uneventful, intravenous administration of contrast material, multislice data acquisition was obtained through the chest, abdomen, and pelvis. The data set was subsequently reconstructed into axial, coronal, and sagittal images. Radiation Dose : CTDI vol 17.5 mGy, DLP 1326.3 mGy*cm. Findings: CT chest: Evaluation is degraded by respiratory motion. Lungs: Dependent atelectatic changes. Pleura: Unremarkable Heart/Great vessels: No cardiomegaly or pericardial effusion. Mild atherosclerotic calcifications about the aorta. No CT evidence of acute central pulmonary embolism. Mediastinum: Unremarkable. Soft tissues/Bones: Unremarkable CT abdomen/pelvis: Liver: Unremarkable. Spleen: Unremarkable. Pancreas: Unremarkable. Gallbladder: Unremarkable. Adrenals: Unremarkable. Kidneys: Bilateral renal cysts. 4 mm calculus situated within the right mid ureter without significant hydroureteronephrosis. Pelvic Viscera: Prostatomegaly. Decompressed urinary bladder. Vasculature: Atherosclerotic aortoiliac calcification. Retroperitoneum: Unremarkable. Bowel: Colonic diverticulosis without CT evidence of diverticulitis. No bowel obstruction. The appendix is normal. Musculoskeletal: Thoracolumbar dish. Possible acute fracture of an anterior osteophyte at the level of T8, suboptimally assessed. Please see separately dictated CT cervical spine for additional findings. Bones are osteopenic. Soft tissues: Unremarkable. Impression: 1. Possible acute fracture of the anterior osteophyte at the level of T8, suboptimally assessed given field of view. Consider dedicated CT of the thoracic spine or MRI in further assessment as clinically indicated. 2. Incidental findings as detailed. Electronically Signed by:VERÓNICA REEVES MD Date & Time: 06/01/25 0009 EXAM: CT CT CERVICAL SPINE INDICATION: FALL EXAM DATE: 05/31/2025 11:13 PM COMPARISON: CT CT CERVICAL SPINE on DOS: 05/05/25, CT CT CERVICAL SPINE on DOS: 11/18/24, CT CERVICAL SPINE on DOS: 12/25/22 TECHNIQUE: Multiple axial CT images of the cervical spine were obtained using bone algorithm. Axial and coronal reformatting was done. Bone and soft tissue windows were reviewed. Radiation Dose Information: CT Dose: CTDI volume is 23.4 mGy. Dose-length product is 620.49 mGy*cm FINDINGS: There are flowing anterior osteophytes with an acute fracture through the anterior osteophyte extending through the superior aspect of the C7 vertebral body. There is no height loss. There is multilevel mild loss of intervertebral disc height. Degenerative uncovertebral and facet hypertrophy contribute to multilevel neural foraminal narrowing. The paraspinal soft tissues are unremarkable. IMPRESSION: 1. Flowing anterior osteophytes with an acute fracture through the anterior osteophyte extending through the superior aspect of the C7 vertebral body. There is no height loss. 2. Degenerative changes of the cervical spine as detailed. 3. All CT scans at this medical facility are performed using dose modulation techniques as appropriate to a performed exam including the following: Automated exposure control was utilized; adjustment of the MA and/or KV according to patient size; and use of iterative reconstruction technique. Electronically Signed by:VERÓNICA REEVES MD Date & Time: 06/01/25 0000 Medical Decision Making Additional information obtaine: old records, N/A Findings Patient had a chronic T8 fracture and the reason he is in rehab at this time.Patient fell 4 feet today from the bed onto his head and now has a acute C7 fracture in the vertebral body. Patient Was given morphine 4 mg IV times two. Pain is now a two out of 10 from a six or seven out of 10. Patient will require transfer and [facility] contacted for trauma transfer for for Ortho spine/neurosurgery. Patient remained inspiring and we were able to find him an aspen collar that he states is much more comfortable for pt as he couldnt tolerate any longer. Patient was accepted to [facility]. No other findings at this time. As per facility and pt fall was mechanical. No acute lab findings.EKG, no acute signs of ischemia no elevation and depression. Limited: (2 points from category 1 or one discussion with independent hi storian). Moderate: one of the following (3 points from category 1, or independent interpretations of tests performed by another physician/QHP: (ct,ecg,rad danny,rhythm strip,or comparing xray to prior), or discussion of tests or management with other professionals (not including [facility] ER doc/PA or family members.) High: (2 of 3 from : category 1 (3 points), independent interpretation of tests performed by another physician/QHP, and discussion of tests or management). Prior ER notes reviewed: Category 1: Number of Tests ordered or reviewed: >3 Number of Independent Historians: [] Non [facility] ER notes reviewed: 1. Reviewed triage notes 2. Reviewed Nursing notes 3. Category 2: I independently interpreted the: [EKG Category 3: Discussion with other professionals: [] SOCIAL DETERMINANTS OF HEALTH Problems related to: ( )Challenges with access to Primary Care or Outpatient Speciality Care ( )Psychosocial circumstances such as mental health issues ( )Social environment: such as violence or substance abuse ( )Housing and economic circumstances: such as homelessness ( )Employment and unemployment: such as recently loss of employment ( )Occupational exposures or injuries: ( )Accessing ED outside of normal PCP hours ( )Language barrier: ( )Primary support group, including family circumstances: Prescription Management: Rx strength meds given in ED: [4 mg of morphine times two IV] New Prescriptions: [] ( )I have reviewed the patient's medications and I do not recommend any changes at this time. (Applies only if checked) Testing or interventions considered: [X-ray right hip CT covered past the hip and not nX-ray right hip CT covCrack compression is C7 fracture, acute, Clinical impression Acute compression fracture C7 Differential Diagnosis See MDM Departure Disposition: ADMITTED INPATIENT Admitted to Inpatient Unit: other (Transferred to [facility]) Impression: Primary Impression: C7 cervical fracture Additional Impression: Thoracic vertebral fracture Condition: Fair Referrals: NO PRIMARY CARE PROVIDER (PCP) Education Educated: Patient Educated regarding: diagnosis, treatment, prognosis Signature Scribe Signature: Scribed for Rommel Perez MD by Vaibhav Miranda . 05/31/25 22:[address]: [address] Perez On June 03, 2025 at 11:55 PM ROMMEL PEREZ MD May 31, 2025 22:39 VAIBHAV GUNN May 31, 2025 23:07
--- NOTE | 2025-05-31 22:58 | ELECTROCARDIOGRAPH REPORT ---
[facility] Test Date: 2025-05-31 Test Time: 22:57:29 Pat Name: BRET LEAHY Department: EMERGENCY ROOM [id number]: Gender: M Studio Producer: : 1940 Requested By: CRISTAL PEREZ Order Number: [id number] Reading MD: Dr. Pavan Perez Measurements Intervals [place] Rate: 91 P: -55 TN: 146 QRS: -56 QRSD: 93 T: 57 QT: 345 QTc: 425 Interpretive Statements Sinus or ectopic atrial rhythm Inferior infarct, old Baseline wander in lead(s) III Electronically Signed On 06-02-2025 11:18:[address] Pavan Perez Please click the below link to view image of tracing.
[2025-05-31] MEDS ORDERED: iohexol 300mg/ml 100ml inj. ONE (23:13)
[2025-05-31 23:37] LABS: MEAN PLATELET VOLUME 8.6 FL (7.4-10.4); RED CELL DISTRIBUTION WIDTH 12.4 % (11.5-14.5)
--- NOTE | 2025-05-31 23:58 | RADIOLOGY REPORT ---
EXAM: CT CT HEAD INDICATION: FALL ON BLOOD THINNERS TECHNIQUE: CT of the head without intravenous contrast. Radiation Dose Information: CT Dose: CTDI volume is 35.9 mGy. Dose-length product is 713.96 mGy*cm The dose indicators for CT are the volume Computed Tomography (CT) Dose Index (CTDIvol) and the Dose Length Product (DLP), and are measured in units of mGy and mGy-cm, respectively. These indicators are not patient dose, but values generated from the CT scanner acquisition factors. The report includes radiation exposure data for exposures received during this examination. COMPARISON: CT CT HEAD on DOS: 05/05/25, CT CT HEAD on DOS: 11/18/24, CT HEAD on DOS: 03/24/22 FINDINGS: Evaluation is degraded by motion artifact. No acute territorial infarct, intracranial hemorrhage, or mass effect. There are global involutional changes with compensatory prominence of the ventricles and sulci. Patchy periventricular and subcortical white matter hypoattenuation is nonspecific but may be related to small vessel ischemic disease. Bilateral lens implants. The paranasal sinuses and mastoid air cells are clear. The osseous structures are unremarkable. IMPRESSION: 1. No acute territorial infarct, intracranial hemorrhage, or mass effect. 2. Age-related involutional changes. Chronic microvascular changes.
--- NOTE | 2025-06-01 00:02 | RADIOLOGY REPORT ---
EXAM: CT CT CERVICAL SPINE INDICATION: FALL EXAM DATE: 05/31/2025 11:13 PM COMPARISON: CT CT CERVICAL SPINE on DOS: 05/05/25, CT CT CERVICAL SPINE on DOS: 11/18/24, CT CERVICAL SPINE on DOS: 12/25/22 TECHNIQUE: Multiple axial CT images of the cervical spine were obtained using bone algorithm. Axial and coronal reformatting was done. Bone and soft tissue windows were reviewed. Radiation Dose Information: CT Dose: CTDI volume is 23.4 mGy. Dose-length product is 620.49 mGy*cm FINDINGS: There are flowing anterior osteophytes with an acute fracture through the anterior osteophyte extending through the superior aspect of the C7 vertebral body. There is no height loss. There is multilevel mild loss of intervertebral disc height. Degenerative uncovertebral and facet hypertrophy contribute to multilevel neural foraminal narrowing. The paraspinal soft tissues are unremarkable. IMPRESSION: 1. Flowing anterior osteophytes with an acute fracture through the anterior osteophyte extending through the superior aspect of the C7 vertebral body. There is no height loss. 2. Degenerative changes of the cervical spine as detailed. 3. All CT scans at this medical facility are performed using dose modulation techniques as appropriate to a performed exam including the following: Automated exposure control was utilized; adjustment of the MA and/or KV according to patient size; and use of iterative reconstruction technique.
--- NOTE | 2025-06-01 00:12 | RADIOLOGY REPORT ---
EXAM: CT CT CHEST ABDOMEN PELVIS W/ IV CONTRAST History: FALL ON BLOOD THINNERS Comparison Study: CT CT CHEST ABDOMEN PELVIS on DOS: 06/20/23, CT ABDOMEN PELVIS on DOS: 07/20/22 TECHNIQUE: A digital electric blanket wirer image was obtained. During the uneventful, intravenous administration of contrast material, multislice data acquisition was obtained through the chest, abdomen, and pelvis. The data set was subsequently reconstructed into axial, coronal, and sagittal images. Radiation Dose : CTDI vol 17.5 mGy, DLP 1326.3 mGy*cm. Findings: CT chest: Evaluation is degraded by respiratory motion. Lungs: Dependent atelectatic changes. Pleura: Unremarkable Heart/Great vessels: No cardiomegaly or pericardial effusion. Mild atherosclerotic calcifications about the aorta. No CT evidence of acute central pulmonary embolism. Mediastinum: Unremarkable. Soft tissues/Bones: Unremarkable CT abdomen/pelvis: Liver: Unremarkable. Spleen: Unremarkable. Pancreas: Unremarkable. Gallbladder: Unremarkable. Adrenals: Unremarkable. Kidneys: Bilateral renal cysts. 4 mm calculus situated within the right mid ureter without significant hydroureteronephrosis. Pelvic Viscera: Prostatomegaly. Decompressed urinary bladder. Vasculature: Atherosclerotic aortoiliac calcification. Retroperitoneum: Unremarkable. Bowel: Colonic diverticulosis without CT evidence of diverticulitis. No bowel obstruction. The appendix is normal. Musculoskeletal: Thoracolumbar dish. Possible acute fracture of an anterior osteophyte at the level of T8, suboptimally assessed. Please see separately dictated CT cervical spine for additional findings. Bones are osteopenic. Soft tissues: Unremarkable. Impression: 1. Possible acute fracture of the anterior osteophyte at the level of T8, suboptimally assessed given field of view. Consider dedicated CT of the thoracic spine or MRI in further assessment as clinically indicated. 2. Incidental findings as detailed.
[2025-06-01 00:18] LABS: CREATININE 1.62 MG/DL (0.60-1.10); TOTAL CARBON DIOXIDE 27.4 MMOL/L (24-32); eCRCL 34 ML/MIN; eGFR 41 ML/MIN
[2025-06-01 00:26] LABS: PRO BRAIN NATRIURETIC PEPTIDE 1038 PG/ML (0-450)
--- NOTE | 2025-06-01 00:45 | RADIOLOGY REPORT ---
EXAM: DI CHEST,SINGLE VIEW TECHNIQUE: Single frontal chest radiograph CLINICAL HISTORY: CP COMPARISON: DI CHEST,SINGLE VIEW on DOS: 11/18/24, DI CHEST,SINGLE VIEW on DOS: 06/22/23, DI CHEST,SINGLE VIEW on DOS: 06/20/23, CHEST,SINGLE VIEW on DOS: 12/27/22, CHEST,SINGLE VIEW on DOS: 03/24/22 FINDINGS/IMPRESSION: Mild elevation of the right hemidiaphragm. The lungs are clear. Unchanged cardiomediastinal silhouette. No pleural effusion or pneumothorax. No acute osseous abnormality.
[2025-06-01] MEDS ORDERED: morphine 4 MG/ML inj SYRINge IV ONE (00:55)
[2025-06-01 02:08] VITALS: BP 140/65; PULSE 93; O2SAT 97
[2025-06-01 02:09] VITALS: RESP 18
== END 2025-06-01 02:32 ==
LOC: ER 22:28
DX: S12.600A Unspecified displaced fracture of seventh cervical vertebra, initial encounter for closed fracture (principal); S22.009A Unspecified fracture of unspecified thoracic vertebra, initial encounter for closed fracture; E11.42 Type 2 diabetes mellitus with diabetic polyneuropathy; E78.00 Pure hypercholesterolemia, unspecified; G89.29 Other chronic pain; I10 Essential (primary) hypertension; I48.91 Unspecified atrial fibrillation; J44.9 Chronic obstructive pulmonary disease, unspecified; R06.2 Wheezing; Z59.00 Homelessness unspecified; Z87.442 Personal history of urinary calculi; Z88.8 Allergy status to other drugs, medicaments and biological substances; Z91.041 Radiographic dye allergy status; Z79.899 Other long term (current) drug therapy; Z79.84 Long term (current) use of oral hypoglycemic drugs; W06.XXXA Fall from bed, initial encounter; Y93.89 Activity, other specified; Y92.89 Other specified places as the place of occurrence of the external cause; Y99.8 Other external cause status
CPT/HCPCS: 36415; 70450; 71045; 71260; 72125; 74177; 80053; 83880; 84484; 85025; 93005; 96374; 99285; J2270; Q9967